=== PATIENT | female | born 1945 | race Caucasian/White ===

== ENCOUNTER 2017-06-03 20:46 | Inpatient (IN) ==
[2017-06-03 22:03] LABS: Basophils % 0.3 %; Eosinophils # 0.1 K/mcL (0.0-0.6); Eosinophils % 1.3 %; Hematocrit 35.7 % (35.3-44.9); Hemoglobin 11.3 g/dL (11.5-15.4); Immature Granulocytes % 0.3 % (0-4); Lymphocytes # 2.2 K/mcL (0.6-4.6); Lymphocytes % 36.9 %; Mean Corpuscular HGB Conc 31.7 g/dL (31.6-35.5); Mean Corpuscular Hemoglobin 27.4 pg (28.0-33.3); Mean Corpuscular Volume 86.4 fL (83.0-100.0); Mean Platelet Volume 10.9 fL (9.4-12.4); Monocytes # 0.4 K/mcL (0.0-1.3); Neutrophils # 3.2 K/mcL (1.6-8.9); Platelet Count 211 K/mcL (140-400); Red Blood Count 4.13 M/mcL (3.82-4.97); Segmented Neutrophils % 54.2 %
[2017-06-03 22:08] LABS: Prothrombin Time 10.6 Seconds (9.4-12.1)
[2017-06-03 22:11] LABS: Activated Partial Thrombo Time 39.2 Seconds (26.0-36.0)
[2017-06-03 22:24] LABS: BUN/Creatinine Ratio 23 (6-26); Blood Urea Nitrogen 17 mg/dL (8-23); Calcium 9.7 mg/dL (8.6-10.3); Carbon Dioxide 28 mEq/L (23-29); Chloride 104 mEq/L (98-107); Glucose 123 mg/dL (70-105); Osmolality,Calculated 289 (280-300); Potassium 3.7 mEq/L (3.5-5.1); Sodium 138 mEq/L (136-145); eGFR For African Americans > 60 (> 60); eGFR For Non-African Americans > 60 (> 60)
--- NOTE | 2017-06-04 00:13 | Emergency Department Note ---
Disposition Clinical Impression: Elevated blood pressure reading, Chest pressure Disposition: Admitted As Inpatient Condition: Good Time of Disposition: 00:17 Chest Pain HPI - General Chief Complaint: ED Chest Pain Stated Complaint: High BP Time Seen by Provider: 06/03/17 22:57 Source: patient Limitations: no limitations Vital Signs Reviewed: Yes Nursing Notes Reviewed: Yes - History of Present Illness HPI Narrative: 72-year-old female complains of elevated blood pressure and chest pressure. Since her blood pressure was elevated at 220/98, and she mentions that usually 145/70. This is what prompted her visit to the emergency department. Additionally she had 2 bouts of painless non bloody diarrhea, moment of feeling lightheaded . The lightheadedness feeling has resolved on its own. She does mention some chronic left scapular pain, no different night, as well as some chronic "stomach pain" that she uses omeprazole 4, and mentions it was no different tonight. Since her shoulder pain has resolved after she was able to lie down and her examiner. She denies any shortness of breath, diaphoresis, nausea, abdominal pain, bloody stools, urinary symptoms, headache, vision changes, no mass. Patient describes a history of CAD, with catheterizing in 2013 in 2014 with no stent placement. She mentions her family doctor is Lorene Barahona. She has ends to schedule follow-up appointment to be scheduled in July and Dr. Cox's office. She is compliant with her medications including amlodipine 5 mg, and carvedilol twice daily. Severity scale (1-10): 3 - Related Data Home Medications Medication Instructions Recorded Confirmed Aspirin 81 mg PO DAILY 06/04/17 06/04/17 Atorvastatin [Lipitor] 40 mg PO 0900 06/04/17 06/04/17 Carvedilol 12.5 mg PO BID 06/04/17 06/04/17 Losartan/Hydrochlorothiazide 1 each PO DAILY 06/04/17 06/04/17 [Losartan-Hctz 50-12.5 mg Tab] Omeprazole [PriLOSEC] 40 mg PO BID 06/04/17 06/04/17 Ubidecarenone/Vit E Acetate [Co 1 each PO DAILY 06/04/17 06/04/17 Q-10 100 mg Softgel] amLODIPine [Norvasc] 5 mg PO HS 06/04/17 06/04/17 Allergies Allergy/AdvReac Type Severity Reaction Status Date / Time Corticosteroids Allergy Nausea Verified 06/03/17 21:04 (Glucocorticoids) famotidine [From Pepcid] Allergy Nausea Verified 06/03/17 21:04 All systems ED: reviewed and negative except as stated. Review of Systems: As Per HPI Constitutional: Denies: fever, chills Eyes: Denies: vision change ENT ED: Denies: throat pain Cardiovascular: Denies: chest pain, palpitations, dyspnea on exertion Respiratory: Reports: as per HPI. Denies: cough, dyspnea Gastrointestinal: Reports: as per HPI. Denies: abdominal pain, nausea, vomiting Genitourinary: Denies: dysuria Musculoskeletal: Reports: as per HPI. Denies: back pain Integumentary: Denies: rash Neurological: Reports: as per HPI. Denies: headache Endocrine: Denies: fatigue Hematological/Lymphatic: Denies: easy bleeding Allergic/Immunologic: Denies: facial swelling Chest Pain PMH - Past Medical History Medical history: Reports: coronary artery disease, GERD, hypertension Surgical history: Reports: hysterectomy Psychiatric history: Reports: no psych history - Social History Smoking Status: Former smoker Alcohol use: Reports: none Drug use: Reports: none Physical Exam - General Limitations: no limitations General appearance: alert, in no apparent distress - Head Head exam: normocephalic - Eye Eye exam: Present: normal appearance, EOMI. Absent: PERRL, conjunctival injection - ENT ENT exam: normal exam, normal oropharynx, mucous membranes moist - Neck Neck exam: Present: normal inspection, full ROM - Chest Chest inspection: Present: normal inspection, symmetric chest wall rise - Respiratory Respiratory exam: Present: normal lung sounds bilaterally. Absent: respiratory distress, wheezes, stridor, accessory muscle use - Cardiovascular Cardiovascular exam: Present: regular rate, normal rhythm - Abdominal Exam Abdominal exam: Present: soft, Non-Tender - Extremities Exam Extremities exam: Present: normal inspection, full ROM, normal capillary refill - Back Exam Back exam: Present: normal inspection, full ROM. Absent: CVA tenderness (R), CVA tenderness (L) - Neurological Exam Neurological exam: Present: alert, oriented X3 - Psychiatric Psychiatric exam: Present: normal affect, normal mood - Skin Skin exam: Present: warm, dry, intact, normal color. Absent: rash, cyanosis, diaphoresis Course Course Narrative: Ptis 72-year-old female presents with complaint of chest pressure and elevated BP. She arrives by private vehicle. Her initial workup has been unremarkable here in the emergency department. She has had no recent cardiac work up. She describes some chronic epigastric abdominal pain, but tells me her chest pressure is new and a separate isssue. She has no SOB, diaphoresis, or EKG findings. However, Due to her risk factors, her concerning history, I do feel that she be benefited for admission and further monitoring for cardiac rule out. Did discuss patient with Dr. Barry, who agreed with admission. - Reevaluation(s) Reevaluation #1: Pt discussed with and accepted by hospitalist Dr. Cooper Time: 04:16 Vital Signs Temperature 98.2 F 06/03/17 21:04 Pulse Rate 73 06/03/17 21:04 Respiratory Rate 18 06/03/17 21:04 Blood Pressure 186/101 06/03/17 21:04 O2 Sat by Pulse Oximetry 99 06/03/17 21:04 Temperature 98.1 F 06/04/17 07:52 Pulse Rate 83 06/04/17 07:52 Respiratory Rate 16 06/04/17 07:52 Blood Pressure 166/96 06/04/17 07:52 O2 Sat by Pulse Oximetry 92 06/04/17 07:52 Oxygen Delivery Oxygen Delivery Room Air Chest Pain - MDM Narrative Medical decision making narrative: Chest X-Ray 06/03/17 21:09 IMPRESSION: No acute process. Thickening of the minor fissure. D/ / José Newman MD / José Newman MD Interpreting Provider: José Newman MD Laboratory Tests 06/03/17 06/03/17 06/03/17 21:43 21:43 21:43 WBC 6.0 RBC 4.13 Hgb 11.3 L Hct 35.7 MCV 86.4 MCH 27.4 L MCHC 31.7 RDW 14.0 Plt Count 211 MPV 10.9 Immature Gran % 0.3 Seg Neutrophils % 54.2 Lymphocytes % 36.9 Monocytes % 7.0 Eosinophils % 1.3 Basophils % 0.3 Neutrophils # 3.2 Lymphocytes # 2.2 Monocytes # 0.4 Eosinophils # 0.1 Basophils # 0.0 PT 10.6 INR 1.0 APTT 39.2 H Sodium 138 Potassium 3.7 Chloride 104 Carbon Dioxide 28 BUN 17 Creatinine 0.73 Est GFR ( Amer) > 60 Est GFR (Non-Af Amer) > 60 BUN/Creatinine Ratio 23 Glucose 123 H Calculated Osmolality 289 Calcium 9.7 Troponin I 06/03/17 21:43 WBC RBC Hgb Hct MCV MCH MCHC RDW Plt Count MPV Immature Gran % Seg Neutrophils % Lymphocytes % Monocytes % Eosinophils % Basophils % Neutrophils # Lymphocytes # Monocytes # Eosinophils # Basophils # PT INR APTT Sodium Potassium Chloride Carbon Dioxide BUN Creatinine Est GFR ( Amer) Est GFR (Non-Af Amer) BUN/Creatinine Ratio Glucose Calculated Osmolality Calcium Troponin I 0.04 H* - Lab Data Lab results reviewed: Yes I reviewed the patient's lab results. Result diagrams: 06/03/17 21:43 06/03/17 21:43 Lab Results 06/03/17 06/03/17 06/03/17 Range/Units 21:43 21:43 21:43 WBC 6.0 (4.3-11.1) K/mcL RBC 4.13 (3.82-4.97) M/mcL Hgb 11.3 L (11.5-15.4) g/dL Hct 35.7 (35.3-44.9) % MCV 86.4 (83.0-100.0) fL MCH 27.4 L (28.0-33.3) pg MCHC 31.7 (31.6-35.5) g/dL RDW 14.0 (11.5-14.5) % Plt Count 211 (140-400) K/mcL MPV 10.9 (9.4-12.4) fL Immature Gran % 0.3 (0-4) % Seg Neutrophils % 54.2 % Lymphocytes % 36.9 % Monocytes % 7.0 % Eosinophils % 1.3 % Basophils % 0.3 % Neutrophils # 3.2 (1.6-8.9) K/mcL Lymphocytes # 2.2 (0.6-4.6) K/mcL Monocytes # 0.4 (0.0-1.3) K/mcL Eosinophils # 0.1 (0.0-0.6) K/mcL Basophils # 0.0 (0.0-0.2) K/mcL PT 10.6 (9.4-12.1) Seconds INR 1.0 APTT 39.2 H (26.0-36.0) Seconds Sodium 138 (136-145) mEq/L Potassium 3.7 (3.5-5.1) mEq/L Chloride 104 (98-107) mEq/L Carbon Dioxide 28 (23-29) mEq/L BUN 17 (8-23) mg/dL Creatinine 0.73 (0.60-1.20) mg/dL Est GFR ( Amer) > 60 (> 60) Est GFR (Non-Af Amer) > 60 (> 60) BUN/Creatinine Ratio 23 (6-26) Glucose 123 H (70-105) mg/dL Calculated Osmolality 289 (280-300) Calcium 9.7 (8.6-10.3) mg/dL Troponin I (< 0.04) ng/mL 06/03/17 Range/Units 21:43 WBC (4.3-11.1) K/mcL RBC (3.82-4.97) M/mcL Hgb (11.5-15.4) g/dL Hct (35.3-44.9) % MCV (83.0-100.0) fL MCH (28.0-33.3) pg MCHC (31.6-35.5) g/dL RDW (11.5-14.5) % Plt Count (140-400) K/mcL MPV (9.4-12.4) fL Immature Gran % (0-4) % Seg Neutrophils % % Lymphocytes % % Monocytes % % Eosinophils % % Basophils % % Neutrophils # (1.6-8.9) K/mcL Lymphocytes # (0.6-4.6) K/mcL Monocytes # (0.0-1.3) K/mcL Eosinophils # (0.0-0.6) K/mcL Basophils # (0.0-0.2) K/mcL PT (9.4-12.1) Seconds INR APTT (26.0-36.0) Seconds Sodium (136-145) mEq/L Potassium (3.5-5.1) mEq/L Chloride (98-107) mEq/L Carbon Dioxide (23-29) mEq/L BUN (8-23) mg/dL Creatinine (0.60-1.20) mg/dL Est GFR ( Amer) (> 60) Est GFR (Non-Af Amer) (> 60) BUN/Creatinine Ratio (6-26) Glucose (70-105) mg/dL Calculated Osmolality (280-300) Calcium (8.6-10.3) mg/dL Troponin I 0.04 H* (< 0.04) ng/mL - Radiology Data Radiology results reviewed: Yes I reviewed the patient's radiology results. Attestation Statement - Attestation Attestation: I, Ke Barry MD, personally evaluated this patient and discussed their management with the midlevel provicer, PAC/STENCIL CUTTER. I reviewed the midlevel provider 's note and agree with the documented findings, medical decision making, and plan of care. 72-year-old female presents to the emergency department with a complaint of some lower substernal chest pressure which started about 8 PM this evening while watching television. The pain radiated up into the mid substernal region and she states that it made her blood pressure go up. She did not take anything for the pain and the pain has now mostly resolved. She does have a history of [place] in the past and coronary artery disease. She has had some cardiac catheters but no stents. No CABG. On examination patient is a well-developed well-nourished well-appearing elderly female in no acute distress. She is alert and oriented 3. There is no cyanosis or diaphoresis. Chest is nontender to palpation. Breath sounds are clear and equal bilaterally. Heart regular rate and rhythm. Abdomen soft and nontender with normal bowel sounds. Labs reviewed. Troponin is elevated at 0.04 however this appears to be baseline for patient. Chest x-ray negative. EKG shows no acute ischemic changes. Hospitalist, Dr. Weathers, was consulted and accepted admission of the patient.
[2017-06-04] MEDS ORDERED: GI Cocktail 40 ML EACH PO ONE (04:40)
[2017-06-04] MEDS ORDERED: Pantoprazole 40 MG VIAL IVP ONE (04:40)
[2017-06-04] MEDS ORDERED: Acetaminophen 325 MG TABLET PO PRN (08:25)
[2017-06-04 09:40] LABS: Basophils % 0.1 %; Eosinophils % 0.4 %; Hematocrit 36.5 % (35.3-44.9); Hemoglobin 11.7 g/dL (11.5-15.4); Immature Granulocytes % 0.3 % (0-4); Lymphocytes # 1.4 K/mcL (0.6-4.6); Lymphocytes % 18.9 %; Mean Corpuscular HGB Conc 32.1 g/dL (31.6-35.5); Mean Corpuscular Hemoglobin 27.3 pg (28.0-33.3); Mean Corpuscular Volume 85.3 fL (83.0-100.0); Mean Platelet Volume 10.9 fL (9.4-12.4); Monocytes # 0.5 K/mcL (0.0-1.3); Monocytes % 6.1 %; Neutrophils # 5.6 K/mcL (1.6-8.9); Platelet Count 208 K/mcL (140-400); Red Blood Count 4.28 M/mcL (3.82-4.97); Red Cell Distribution Width 14.1 % (11.5-14.5); Segmented Neutrophils % 74.2 %
--- NOTE | 2017-06-04 10:49 | Internal Med History&Physical ---
Date of Encounter: 06/04/17 Time of Encounter: 10:48 Assessment and Plan (1) NSTEMI (non-ST elevated myocardial infarction) Current visit: Yes Status: Acute Patient had typical substernal chest pain at rest. Her initial troponin was 0.04. Repeat troponin this morning as 1.13. Her EKG shows normal sinus rhythm with left bundle branch block which is unchanged from 2014. Currently her chest pain has resolved. She reports a past history of myocardial infarction and had 2 catheterizations done in 2013 in 2014, per her report it was found that she had minimal disease and no intervention was necessary. Collectively the above suggests a diagnosis of ACUTE non-ST elevation MD. Plan: Admit. Aspirin 325 mg once. Start heparin drip per ACS protocol. IV metoprolol for hypertension. Nothing by mouth. Cardiology consult. I discussed the case with cardiology, they will evaluate for left heart catheter. Hold Brilinta until seen by cardiology. We will obtain echocardiogram. IV fluids. We will obtain lipid panel in the morning. Continue statin. (2) Essential hypertension Current visit: Yes Status: Acute Resume home medications when she tolerates oral intake. For now we will treat with IV metoprolol. (3) DVT prophylaxis Current visit: Yes Status: Acute Currently fully anticoagulated with IV heparin. (4) GERD (gastroesophageal reflux disease) Current visit: Yes Status: Acute IV Protonix while the patient is nothing by mouth. Qualifiers: Esophagitis presence: esophagitis presence not specified Qualified Code(s) : K21.9 - Gastro-esophageal reflux disease without esophagitis Internal Medicine - H&P: HPI Chief complaint: Chest pain Admitted From: Emergency Dept Plans for Post Hospital Care: Home History of present illness: Ms. Valdez is a 72 year old female with past medical history significant for essential hypertension, coronary artery disease status post MD and GERD who presented to the hospital for evaluation of chest pain. She reports substernal , pressure-like, 5/10 in intensity chest pain that started yesterday at 7 PM while at rest. Associated with left shoulder pain and mid back pain and mild nonproductive cough. Denies aggravating and alleviating factors. She presented to the hospital where her initial workup was pertinent for troponin of 0.04. Her chest pain has currently resolved. Additionally reports nonbloody diarrhea 2 yesterday, this has now resolved. Reports bilateral lower extremity swelling. A 10 point review of systems was negative except as stated above. Surgical history: Remote hysterectomy Family history: Patient's father suffered with lung cancer, patient's mother suffered with Parkinson's disease, sister suffered with heart disease. Social history: Remote history of smoking, quit in 1971. Denies alcohol and drug use. Lives at home independently. Past Med Surg Social Fam HX - Past Medical History Medical history: coronary artery disease, GERD, hypertension Psychiatric history: no psych history - Past Surgical History Surgical History: hysterectomy - Social History Smoking Status: Former smoker Packs per day: 1 Smokeless Tobacco Status: No Alcohol use: none Drug use: none - Family History Mother Living Status: Hx Family Cardiac Disorders: Yes (MD) Internal Medicine - H&P: Meds Aspirin 81 mg PO DAILY 06/04/17 [History] Atorvastatin [Lipitor] 40 mg PO 0900 06/04/17 [History] Carvedilol 12.5 mg PO BID 06/04/17 [History] Losartan/Hydrochlorothiazide [Losartan-Hctz 50-12.5 mg Tab] 1 each PO DAILY [History] Omeprazole [PriLOSEC] 40 mg PO BID 06/04/17 [History] Ubidecarenone/Vit E Acetate [Co Q-10 100 mg Softgel] 1 each PO DAILY 06/04/17 [ History] amLODIPine [Norvasc] 5 mg PO HS 06/04/17 [History] 3 Allergy/AdvReac Type Severity Reaction Status Date / Time Corticosteroids Allergy Nausea Verified 06/03/17 21:04 (Glucocorticoids) famotidine [From Pepcid] Allergy Nausea Verified 06/03/17 21:04 All Systems PM: A 10-system review of systems was performed and is negative for pertinent findings except as documented above in the HPI. - Constitutional Vitals: Temp Pulse Resp BP Pulse Ox 98.1 F 83 16 166/96 92 06/04/17 07:52 06/04/17 07:52 06/04/17 07:52 06/04/17 07:52 06/04/17 07:52 General appearance: Present: A&O X 3, no acute distress, answers questions appropriately - Eye Eye exam: Present: PERRL, conjuntiva pink, sclera anicteric Pupils: Present: PERRL - Respiratory Respiratory exam: Present: CTAB. Absent: accessory muscle use, rales, rhonchi, wheezes - Cardiovascular Cardiovascular exam: Present: RRR, +S1, +S2. Absent: diastolic murmur, gallop, rubs, systolic murmur - GI/Abdominal GI/Abdominal exam: Present: normal bowel sounds, soft, no peritoneal signs. Absent: distended, tenderness - Extremities Exam Extremities exam: Present: pedal edema (Trace lower extremity pitting edema), warm, radial pulses palpable and symmetrical. Absent: calf tenderness, cyanotic - Neurological Exam Neurological exam: Present: CN II-XII intact, oriented X3, no focal deficits. Absent: pronater drift, facial droop, speech deficit - Skin Skin exam: Present: dry, intact Internal Med - H&P Results - Labs CBC & Chem 7: 06/04/17 09:30 06/03/17 21:43 Labs: Short CBC 06/04/17 Range/Units 09:30 WBC 7.6 (4.3-11.1) K/mcL Hgb 11.7 (11.5-15.4) g/dL Hct 36.5 (35.3-44.9) % Plt Count 208 (140-400) K/mcL Neutrophils # 5.6 (1.6-8.9) K/mcL Cardiac Enzymes 06/04/17 Range/Units 09:30 Troponin I 1.13 H* (< 0.04) ng/mL - EKG Data -: EKG Interpreted by Myself EKG shows normal: sinus rhythm (Left bundle branch block unchanged from 2013) - EKG Data Prior EKG available for review: yes (I have personally reviewed her old EKG from March 2014 in EMR.) When compared to previous EKG: there are significant changes
[2017-06-04] MEDS ORDERED: *HR* Metoprolol 5 MG/5 ML VIAL IVP PRN (11:50)
[2017-06-04] MEDS ORDERED: Aspirin 325 MG TABLET PO ONE (11:51)
[2017-06-04] MEDS ORDERED: *HR* Heparin 5,000 UNIT/ML VIAL IVP ONE (11:51)
[2017-06-04] MEDS ORDERED: *HR* Heparin 5,000 UNIT/ML VIAL IVP PRN ×2 (11:51)
[2017-06-04] MEDS ORDERED: Heparin 25,000 UNIT/500 ML D5W 25,000 UNIT/500 ML BAG IVC SCH (12:00)
[2017-06-04 12:13] LABS: INR 1.1
[2017-06-04 12:21] LABS: Hematocrit 37.1 % (35.3-44.9); Mean Corpuscular HGB Conc 32.3 g/dL (31.6-35.5); Mean Corpuscular Hemoglobin 27.3 pg (28.0-33.3); Mean Corpuscular Volume 84.3 fL (83.0-100.0); Platelet Count 208 K/mcL (140-400); Red Cell Distribution Width 14.1 % (11.5-14.5)
[2017-06-04] MEDS: Aspirin 81 MG TAB.CHEW PO SCH (12:36)
[2017-06-04] MEDS: 0.9 % Sodium Chloride 1,000 ML IVC SCH (12:36)
[2017-06-04] MEDS: Losartan/HCTZ 50-12.5 TABLET PO SCH (12:37)
--- NOTE | 2017-06-04 14:33 | Electrocardiograph Report ---
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
--- NOTE | 2017-06-04 15:49 | Cardiology Consult Note ---
<Jack Lockhart Anayeli - Last Filed: 06/04/17 17:56> Date of Encounter: 06/04/17 Time of Encounter: 15:44 Assessment and Plan (1) NSTEMI (non-ST elevated myocardial infarction) Current Visit: Yes Status: Acute Troponin elevation up to 1.13. EKG shows LBBB, unchanged from previous. She is currently pain free. History of moderate non-obstructive CAD on LHC in 2014. LHC R/B/A discussed and she agrees to proceed. NPO after midnight for lHC. Heparin GTT. Asa, statin, and bb. Check TTE. (2) CAD (coronary artery disease) Current Visit: Yes Status: Acute H/o VT in 2013 and 2013. Underwent LHC both times and did not require intervention. LHC in 2014 showed moderate single vessel CAD. There was a 40% stenosis in the proximal LAD and 60% stenosis in the mLAd. FFR was no functionally significant . EF 65%. Asa, statin, and bb. Qualifiers: Coronary Disease-Associated Artery/Lesion type: [place] artery [place] vs. transplanted heart: [place] heart Associated angina: with unstable angina Qualified Code(s): I25.110 - Atherosclerotic heart disease of [place] coronary artery with unstable angina pectoris (3) Essential hypertension Current Visit: Yes Status: Acute Continue norvasc and atenolol. Increase norvasc. B/p 200/110 at home. Now improved. Discussion w patient/family: The assessment and plan as outlined above was discussed with the patient and/or family members who expressed understanding and agreement. All questions were answered. Thank you for involving us in the care of your patient. Please call with any questions. History of Present Illness Consult date: 06/04/17 Requesting physician: Harshad Bashir Consult reason: NSTEMI Chief complaint: Chest pain History of present illness: Ms. Valdez is a 72 year old female with a past medical history of moderate non- obstructive CAD, LBBB, HTN, and HLD who presents with the c/o chest pain starting yesterday while she was sitting. Her pain radiated to her left shoulder and neck. She also experienced nausea. She checked her blood pressure and found it to be 200/110. She drove herself to the emergency room. SHe was given a GI cocktail with relief of her pain. Past Med Surg Social Fam HX - Past Medical History Medical history: coronary artery disease, GERD, hypertension, myocardial infarction Psychiatric history: no psych history - Past Surgical History Surgical History: hysterectomy - Social History Smoking Status: Former smoker Packs per day: 1 Smokeless Tobacco Status: No Alcohol use: none Drug use: none - Family History Mother Living Status: Hx Family Cardiac Disorders: Yes ([place]) Medications and Allergies Aspirin 81 mg PO DAILY 06/04/17 [History] Atorvastatin [Lipitor] 40 mg PO 0900 06/04/17 [History] Carvedilol 12.5 mg PO BID 06/04/17 [History] Losartan/Hydrochlorothiazide [Losartan-Hctz 50-12.5 mg Tab] 1 each PO DAILY [History] Omeprazole [PriLOSEC] 40 mg PO BID 06/04/17 [History] Ubidecarenone/Vit E Acetate [Co Q-10 100 mg Softgel] 1 each PO DAILY 06/04/17 [ History] amLODIPine [Norvasc] 5 mg PO HS 06/04/17 [History] 3 Allergy/AdvReac Type Severity Reaction Status Date / Time Corticosteroids Allergy Nausea Verified 06/03/17 21:04 (Glucocorticoids) famotidine [From Pepcid] Allergy Nausea Verified 06/03/17 21:04 All Systems Review: A 10-system review of systems was performed and is negative for pertinent findings except as documented above in the HPI. Physical Examination Vital Signs, Last 4 Hours Temp Pulse Resp BP Pulse Ox 06/04/17 15:43 98.5 F 73 16 154/88 96 General: Conversant, No Apparent Distress HEENT: Atraumatic, Normocephaly, Mucus Membranes Moist Neck: No JVD, Normal carotid pulses Cardiac: Reg Rate and Rhythm, Normal S1 and S2, No Murmur Lungs: Normal Breath Sounds, No Wheeze, Rales, Rhonchi Neuro: Alert and responsive, No focal deficits noted Abdomen: Soft, Non-Tender Skin: No rashes noted on visualized skin Musculoskeletal: No Chest Wall Tenderness Extremities: No Clubbing, No Cyanosis, No Edema, Normal Pulses Results 06/04/17 11:59 06/03/17 21:43 Chest X-Ray 06/03/17 21:09 IMPRESSION: No acute process. Thickening of the minor fissure. D/ / José Newman MD / José Newman MD Interpreting Provider: José Newman MD - Imaging and Cardiology Echo: report reviewed Cardiac cath: report reviewed - EKG Interpretation EKG results cardiology: personally reviewed (SR with LBBB) Consult Discharge Plan - Plan Referrals: Lorene Barahona MD [Primary Care Provider] - <KatelynGeri - Last Filed: 06/05/17 11:26> Date of Encounter: 06/05/17 - Attending Attestation I examined this patient and my medical decision-making was reviewed with the HOT FRAME TENDER. I agree with the documented findings, disposition and treatment plan as described. Ms. Valdez presents with atypical chest pain symptoms. ECG demonstrates known LBBB. Troponin elevated to 1.13. She has known moderate CAD by [facility] in 2014. We discussed pursuing C. The R/B/A of the procedure were discussed with the patient who expressed understanding and verbalized agreement to proceed. Continue asa, statin, BB and heparin for anticoagulation. Assessment and Plan Discussion w patient/family: The assessment and plan as outlined above was discussed with the patient and/or family members who expressed understanding and agreement. All questions were answered. Thank you for involving us in the care of your patient. Please call with any questions. History of Present Illness History of present illness: Ms. Valdez is a 72 year old female All Systems Review: A 10-system review of systems was performed and is negative for pertinent findings except as documented above in the HPI. Physical Examination Vital Signs, Last 4 Hours Temp Pulse Resp BP Pulse Ox 06/05/17 07:30 98.1 F 77 21 149/87 98 Results 06/04/17 11:59 06/05/17 03:05 Lab Results 06/04/17 06/04/17 06/05/17 19:20 22:13 03:05 APTT 167.2 H* D Sodium 139 Potassium 3.3 L Chloride 109 H Carbon Dioxide 23 BUN 13 Creatinine 0.57 L Glucose 115 H Calcium 8.9 Troponin I 0.97 H* 06/05/17 06/05/17 03:05 10:34 APTT 64.6 H D 68.5 H Sodium Potassium Chloride Carbon Dioxide BUN Creatinine Glucose Calcium Troponin I
--- NOTE | 2017-06-04 18:33 | Electrocardiograph Report ---
[place] [id number] Test Date: 2017-06-03 Pat Name: Shena Valdez Department: 104 Room: [facility] Gender: F Technical Assoc: : 1945 Requested By: Ke Barry Order Number: [id number] Reading MD: Lorene Sexton Measurements Intervals [place] Rate: 72 P: 55 [place]: 172 QRS: 17 QRSD: 140 T: 56 QT: 406 QTc: 430 Interpretive Statements SINUS RHYTHM LEFT BUNDLE BRANCH BLOCK Electronically Signed On 06-04-2017 18:31:27 EST by Lorene Sexton
[2017-06-04] MEDS: Pantoprazole 40 MG VIAL IVP SCH (19:01)
[2017-06-04 20:10] LABS: Activated Partial Thrombo Time 167.2 Seconds (26.0-36.0)
[2017-06-04 20:15] LABS: Heparin anti-factor XA UFH 0.64 IU/mL (0.30-0.70)
[2017-06-04] MEDS: amLODIPine 5 MG TABLET PO SCH (20:15)
[2017-06-04] MEDS ORDERED: amLODIPine 5 MG TABLET PO SCH (21:00)
[2017-06-05 04:06] LABS: BUN/Creatinine Ratio 23 (6-26); Blood Urea Nitrogen 13 mg/dL (8-23); Calcium 8.9 mg/dL (8.6-10.3); Carbon Dioxide 23 mEq/L (23-29); Chloride 109 mEq/L (98-107); Chol/HDL Ratio 2.5 (0-4.9); Cholesterol 159 mg/dL (< 200); Glucose 115 mg/dL (70-105); HDL Cholesterol 63 mg/dL (40-59); LDL Cholesterol,Calculated 79 mg/dL (0-99); Osmolality,Calculated 289 (280-300); Potassium 3.3 mEq/L (3.5-5.1); Sodium 139 mEq/L (136-145); Triglycerides 87 mg/dL (< 150); eGFR For African Americans > 60 (> 60); eGFR For Non-African Americans > 60 (> 60)
[2017-06-05] MEDS: Pantoprazole 40 MG VIAL IVP SCH ×2 (05:59→21:59)
[2017-06-05] MEDS: 0.9 % Sodium Chloride 1,000 ML IVC SCH (09:36)
[2017-06-05] MEDS: Losartan/HCTZ 50-12.5 TABLET PO SCH (10:56)
[2017-06-05] MEDS: Aspirin 81 MG TAB.CHEW PO SCH (10:56)
--- NOTE | 2017-06-05 11:32 | Pre-Sedation Evaluation ---
Pre-sedation evaluation - Pre-sedation checklist Date of procedure: 06/05/17 Procedure: Heart Cath Recent Vitals: Last Vital Signs Temp 98.1 F 06/05/17 11:10 Pulse 70 06/05/17 11:10 Resp 17 06/05/17 11:10 BP 136/79 06/05/17 11:10 Pulse Ox 98 06/05/17 11:10 H&P (including ROS) documented in medical record: Yes Previous reaction to sedatives/anesthetics: No Dietary Status: NPO after Midnight Dentition: No loose teeth or bridges ASA Classification *see protocol: CLASS II-Mild systemic disease Plan of Care: Pt appropriate candidate for procedure/moderate/conscious sedation , Risks/benefits of procedure/sedation discussed w/ patient/family
[2017-06-05] MEDS ORDERED: ISOVUE-370 200 ML INFUS..BTL IV ONE (11:39)
[2017-06-05] MEDS ORDERED: *HR* Heparin 10,000 UNIT/10 ML VIAL ONE (11:39)
[2017-06-05] MEDS ORDERED: Heparin 1,000 UNITS/500 mL 500 ML ONE (11:39)
[2017-06-05] MEDS ORDERED: 0.9 % Sodium Chloride 1,000 ML ONE (11:39)
[2017-06-05] MEDS ORDERED: Nitroglycerin 1,000 MCG/10 ML VIAL IV ONE (11:40)
[2017-06-05] MEDS ORDERED: *HR* Midazolam HCl 2 MG/2 ML VIAL ONE (12:07)
[2017-06-05] MEDS ORDERED: *HR* FentaNYL (PF) 100 MCG/2 ML VIAL ONE (12:07)
[2017-06-05] MEDS ORDERED: Verapamil 5 MG/2 ML VIAL ONE (12:09)
[2017-06-05] MEDS ORDERED: Ondansetron 4 MG/2 ML VIAL ONE (12:36)
[2017-06-05] MEDS ORDERED: *HR* Metoprolol 5 MG/5 ML VIAL IVP ONE (12:42)
--- NOTE | 2017-06-05 13:01 | Invasive Diagnostic Lab Proc ---
Name: Shena Valdez Date of Study: 06/05/2017 Date: 1945 Ht: 66.1in Medical Record#: [id number] Age: 72 Wt: 174.17lb Gender: Female BSA: 1.89 Order #: [id number] BMI: 27.99 Physicians Procedure Physician: Doug Mujica MD, [facility] Referring MD: Referring MD: Staff Name Position Time In Joana Wilson RN Monitor 12:13 PM Liliam Rodriguez RN [employer] Installation Supervisor 12:13 PM Sylwia Vaca RT Scrub 12:13 PM Indications Indication Non-Stemi Procedures Performed Procedure L HRT ARTERY/VENTRICLE ANGIO Pre-Procedure Checklist Informed consent is complete signed and on chart. H&P is on chart. ID band is on and ID verified with patient. Patient NPO for procedure The procedure was described for the patient and questions were answered. Blood Pressure: 136/73 ECG is on chart. Plan of Care Patient will tolerate the procedure without complications. Adequate level of comfort will be maintained. Hemodynamics will remain stable Patient will recover from procedure without complications. Respiratory function will be maintained. Cardiac rhythm will remain stable. Patient temperature will be maintained. Patient and/or family have verbalized understanding of the procedure. Patient Education Chief Complaint/Reason for Test: Cardiac Cath Developmental Category: Adult (18-64 years) Developmentally Appropriate for Age: Yes Learning Barriers: None Education Needs: Procedure Education Method: Verbal Information Taught: Cardiac Cath Educational Evaluation: Able to repeat information Intravenous Access Time IV Size Location DC'd Fluid/Drip Rate Units RN 20g 1 1/4" Patent On Arrival Lt Antecubital 0.9NaCl 25 ml/hr 20g 1 1/4" Patent On Arrival Rt Antecubital Allergies Corticosteroids (Glucocorticoids) famotidine Vital Signs Time BP (mmHg) HR (bpm) O2 Sat. RR (bpm) LOC 136 / 73 75 95 % 16 5 = Fully awake and oriented or at pre-proc level 12:06 PM 159 / 93 85 96 % 12:11 PM 161 / 89 80 98 % 19 12:16 PM 162 / 86 83 99 % 25 12:21 PM 166 / 92 86 99 % 20 12:26 PM 125 / 93 125 92 % 29 Procedural Medications Time Medication Dose Units Method Given By 12:13 PM Oxygen 2 L/min nasal cannula Liliam Rodriguez RN 12:13 PM Versed 2 mg Intravenous Liliam Rodriguez RN 12:13 PM Fentanyl 50 mcg Intravenous Liliam Rodriguez RN 12:21 PM Fentanyl 50 mcg Intravenous Liliam Rodriguez RN 12:21 PM Lidocaine 2% 0.5 ml Subcutaneous Doug Mujica MD, [facility] 12:22 PM Heparin 2000 units Nitroglycerin 200 mcg Verapamil 2.5 mg Intraarterial Doug Mujica MD, FAC 12:37 PM Zofran 4 mg Intravenous Liliam Rodriguez RN 12:43 PM Lopressor 2.5 mg Intravenous Liliam Rodriguez RN Ari Score Preprocedure Postprocedure Activity 2- Moves 4 extremities sustained head lift Activity 2- Moves 4 extremities sustained head lift Circulation 2- SBP +/= 20 points of pre-anesthetic level Circulation 2- SBP +/= 20 points of pre-anesthetic level Consciousness 2- Awake and alert oriented x 3 Consciousness 2- Awake and alert oriented x 3 O2 Saturation 2- Able to maintain O2 satruation of 92% on room air O2 Saturation 2- Able to maintain O2 satruation of 92% on room air Respiratory 2- Able to deep breathe and cough well Respiratory 2- Able to deep breathe and cough well Total Score 10 Total Score 10 Contrast Agent: Isovue Diagnostic Contrast: 42 ml Total Contrast: 42 ml Fluoro Dose: 112 mGy Procedure Log Time Note Enter By 12:02 PM Pt arrived to [facility] 2 at 12:02 [facility] 12:02 PM Keenan paged/called 12:02. [email or web address] 12:02 PM Keenan responded and notified [facility] is [facility] 12:02 PM Physician arrived 12:02 [facility] 12:02 PM Meet and greet completed [facility] 12:02 PM Sign in performed according to hospital policy. [email or web address] 12:02 PM Procedure start 12:02 [email or web address] 12:02 PM CathStat 12:02 PM Case Start 12:05 PM Vitals capture started with the following parameters, Patient=Adult, Interval=5 min, Initial Eeuobctg=768 mmHg, Deflation Rate=5 mmHg, Cuff placed on Right Arm 12:06 PM HR=85 bpm, USHN=093/93 mmhg, SpO2=96.0 %, Comment=SR 12:11 PM HR=80 bpm, RFXK=363/89 mmhg, SpO2=98.0 %, Resp=19 B/min 12:12 PM Recorded ECG: HR=88 Condition=Condition 1 12:13 PM Joana Wilson RN Position: Monitor Time in: :[facility] 12: PM Liliam Rodriguez RN Position: [employer] Installation Supervisor Time in: :[facility] 12:13 PM Sylwia Vaca RT Position: Scrub Time in: : [facility] 12:13 PM Patient charges- Angio tray pack, Navilyst 3mm J, Pulse Oximetry and ACIST tubing and transducer [facility] 12:13 PM Case Delayed No [facility] 12: PM Hair removed from procedure site in procedure lab using clippers. Right wrist &Rt groin prepped with Chloraprep by Liliam Rodriguez RN, then patient was draped. Skin intact. [facility] 12: PM Time: 12: Oxygen on at 2 L/min per nasal cannula by [facility] 12: PM Time: 12: Versed 2 mg Intravenous Given by Liliam Rodriguez [facility] 12: PM Time: 12: Fentanyl 50 mcg Intravenous Given by Liliam Rodriguez RN [facility] 12:16 PM HR=83 bpm, ELFK=595/86 mmhg, SpO2=99.0 %, Resp=25 B/min 12:20 PM Clinical Presentation: Non-STEMI [facility] 12:20 PM Time out performed according to hospital policy [facility] 12:20 PM IV tubing came apart, unsure if pt received medications. Pt still awake, alert, and oriented. Reports does not feel medication "working." [facility] 12: PM HR=86 bpm, POEN=336/92 mmhg, SpO2=99.0 %, Resp=20 B/min 12: PM Time: 12: Fentanyl 50 mcg Intravenous Given by Liliam Rodriguez RN [facility] 12: PM Time: 12: 0.5 ml Lidocaine 2% to right radial Subcutaneous Given by Doug Mujica MD, [facility] 12:21 PM Access obtained by percutaneous puncture. 6Fr 10cm Terumo Glidesheath sheath placed in right Radial artery. [id number] [facility] 12: PM Time: : Patient given 2,000 units Heparin, 200 mcg Nitroglycerin, and 2.5 mg Verapamil Intraarterial by Doug Mujica MD, [facility]. This is given to reduce risk of vessel spasm and thrombosis. [facility] 12: PM Pressure channel 1 zeroed. 12:22 PM 0.035 260cm Navilyst 3mmJ wire [id number] [facility] 12: PM 5Fr TIG catheter inserted over the wire [facility] 12: PM Wire removed [facility] 12:23 PM Recorded Pressure: Ao, HR=89, Condition=Condition 1 (Aorta) Ao 131/80/104 12:23 PM RCA angiography performed in multiple views. [facility] 12:24 PM Recorded Pressure: Ao, OG=708, Condition=Condition 1 (Aorta) Ao 111/88/98 12:24 PM LCA angiography performed in multiple views. oumm 12:25 PM Catheter removed [facility] 12:25 PM 5Fr Pigtail catheter inserted over the wire [facility] 12: PM Catheter selectively placed in left [facility] 12:26 PM JS=648 bpm, JAFO=153/93 mmhg, SpO2=92.0 %, Resp=29 B/min 12:26 PM Bolus angiogram of left Ventricle complete: 10 ml/sec for a total of 20 mls [facility] 12:26 PM Recorded Pressure: LV, WH=467, Condition=Condition 1 (Left Ventricle) LV 138/4/47 12:27 PM Recorded Pressure: LV, Ao, VR=748, Condition=Condition 1 (Left Ventricle) LV 131/21/51, (Aorta) Ao 139/79/106 12:27 PM Catheter removed [facility] 12:27 PM Procedure completed at 12:27 [facility] 12:29 PM Sign out completed: Radiation Dose 111.62 mGy Fluoro Time: 0.7 Isovue 370 - 200ml contrast 42 ml given by Doug Mujica MD, [facility]. Complications: NoneCardiac Rehab Consult needed: NoConfirmed administered medications: Yes [facility] 12:29 PM Isovue 370 - 200ml,1 Bottle(s) used. [facility] 12:29 PM Arterial sheath pulled, Vasc Band closure device used and was Successful S/N. [facility] 12:29 PM 12 ml air in Vasc Band. [facility] 12:29 PM Estimated Blood Loss: minimal [facility] 12:30 PM Post Blood Pressure 125/93 [facility] 12:30 PM 12:30 Post Pulses Rt Radial 1+ [facility] 12:30 PM Information taught Cardiac Cath [facility] 12:30 PM Education needs Procedure, Plan of Care, and Responsibilities of Patient in Care [facility] 12:30 PM Learning barriers :None [facility] 12:30 PM Education Methods Verbal [facility] 12:30 PM Education evaluation Able to repeat information [facility] 12:30 PM Site status No bleeding/hematoma - Rt Wrist as reported by Sylwia Vaca RT at 12:30 [facility] 12:30 PM Post ECG Atrial Fibrillation [facility] 12:31 PM Plavix, Effient or Brilinta given No [facility] 12:31 PM Delay to floor No [facility] 12:31 PM Family placed in consult room. mm 12:31 PM Complications: None [facility] 12:31 PM Fluoro Time: 0.7 [facility] 12:31 PM Isovue 370 - 200ml contrast 42 ml given by Doug Mujica MD, [facility]. [facility] 12:31 PM Radiation Dose 111.62 mGy [facility] 12:33 PM Coronary Dominance: right [facility] 12:33 PM Lesion found in Mid RCA. Pre Stenosis: 50 Pre CASSIDY Flow: [facility] 12:33 PM Lesion found in Mid LAD. Pre Stenosis: 40 Pre CASSIDY Flow: [facility] 12:33 PM Lesion found in Distal LAD. Pre Stenosis: 70 Pre CASSIDY Flow: [facility] 12:35 PM Right Coronary, Right Posterior Descending Arteries with Right Posterolateral and Acute Marginal branches with 50 % stenosis. If graft is supplying this area, 0 % stenosis [facility] 12:35 PM Mid/Distal Left Anterior Descending Coronary Artery and diagonal branches with 70% stenosis. If graft is supplying this area, 0 % stenosis [facility] 12:36 PM Report given to Alice BOYCE Pt taken to Other Room #[facility]. 12:36 [facility] 12:36 PM Pt reports nausea. [facility] 12:37 PM Time: 12:37 Zofran 4 mg Intravenous Given by Liliam Rodriguez RN [facility] 12:44 PM Time: 12:43 Lopressor 2.5 mg Intravenous Given by Liliam Rodriguez RN 12:50 PM Patient out of room: 12:50 moustapha Complications Complication None Hemodynamics Pressures Site Systolic/A Wave Diastolic/V Wave Mean AO 131 80 104 AO 111 88 98 LV 138 4 47 LV 131 21 51 AO 139 79 106 Post Procedure Information Blood Pressure: 125/93 mmHg Rhythm: Atrial Fibrillation Post procedural instructions were given Closure Device Time Device Success/Fail 06/05/2017 12:29:00 PM Mechanical Compression Successful Site Checks Time Location Status Staff Sheath In? Note 12:30 PM Rt Wrist No bleeding/hematoma Sylwia Vaca RT Pulses Time Site Pre-Procedure Post-Procedure Note Bilateral DP & PT 1+ Bilateral radial 1+ 12:30:00 PM Rt Radial 1+ Updated by Joana Wilson RN on 06/05/2017 12:52:49 PM electronically signed on 06/05/2017 12:53:13 PM with status of Final
[2017-06-05] MEDS ORDERED: *HR* Heparin 5,000 UNIT/ML VIAL IVP ONE (16:23)
[2017-06-05] MEDS ORDERED: *HR* Heparin 5,000 UNIT/ML VIAL IVP PRN ×2 (16:23)
--- NOTE | 2017-06-05 16:24 | Internal Med Progress Note ---
Date of Encounter: 06/05/17 Time of Encounter: 13:00 - Assessment and plan (1) CAD (coronary artery disease) Current Visit: Yes Status: Acute Assessment and plan: per hx. Presented with chest pressure. Serial troponins negative, EKG without acute ST changes. Heparin drip was started on arrival given her cardiac history and presentation. TTE with EF 35%, left ventricular systolic dysfunction. 06/05/17 [facility] with non-obstructive CAD reportedly with myocarditis ( ? recent flu). Suspect possible GI source for chest discomfort as well. Workup as noted below. Continue home ASA, BB, statin. Qualifiers: Coronary Disease-Associated Artery/Lesion type: [place] artery [place] vs. transplanted heart: [place] heart Associated angina: with unstable angina Qualified Code(s): I25.110 - Atherosclerotic heart disease of [place] coronary artery with unstable angina pectoris (2) Atrial fibrillation with RVR Current Visit: Yes Status: Acute Assessment and plan: new onset after L HC. Heart rates in one teens to 120s. Amiodarone and heparin drip. Cardiology following. Optimize electrolytes (3) GERD (gastroesophageal reflux disease) Current Visit: Yes Status: Acute Assessment and plan: per hx. patient reports right upper quadrant pain with associated reflux/chest pressure. Continue PPI. Right upper quadrant US, lipase pending Qualifiers: Esophagitis presence: esophagitis presence not specified Qualified Code(s) : K21.9 - Gastro-esophageal reflux disease without esophagitis (4) DVT prophylaxis Current Visit: Yes Status: Acute Assessment and plan: hep gtt - Subjective Interval history: Seen and examined at bedside; patient is new to me. Information obtained from chart review and patient report. Patient says she feels better with like to go home today however she is in A. fib with RVR. Patient describes right upper quadrant pain for several months that radiates to her chest. No previous workup for abdominal pain. Denies chest pain, no shortness of breath on my exam. - Constitutional Vitals: Temp Pulse Resp BP Pulse Ox 97.7 F 101 21 103/89 94 06/05/17 15:15 06/05/17 16:00 06/05/17 16:00 06/05/17 16:00 06/05/17 16:00 General appearance: Present: A&O X 3, no acute distress, answers questions appropriately - Head Head exam: Present: atraumatic, normocephalic - Eye Eye exam: Present: PERRL, conjuntiva pink, sclera anicteric Pupils: Present: PERRL - Neck Neck exam general surgery: Present: supple, trachea midline. Absent: lymphadenopathy - Respiratory Respiratory exam: Present: CTAB. Absent: accessory muscle use, rales, rhonchi, wheezes - Cardiovascular Cardiovascular exam: Present: irregular rhythm, +S1, +S2. Absent: diastolic murmur, gallop, rubs, systolic murmur - GI/Abdominal GI/Abdominal exam: Present: normal bowel sounds, soft, no peritoneal signs. Absent: distended, tenderness - Extremities Exam Extremities exam: Present: warm, radial pulses palpable and symmetrical. Absent : calf tenderness, cyanotic, pedal edema - Neurological Exam Neurological exam: Present: CN II-XII intact, oriented X3, no focal deficits. Absent: pronater drift, facial droop, speech deficit - Skin Skin exam: Present: dry, intact Internal Medicine: Result - Labs CBC & Chem 7: 06/04/17 11:59 06/05/17 03:05 Labs: BMP 06/05/17 03:05 Sodium 139 Potassium 3.3 L Chloride 109 H Carbon Dioxide 23 BUN 13 Creatinine 0.57 L Glucose 115 H Calcium 8.9 Cardiac Enzymes 06/04/17 Range/Units 22:13 Troponin I 0.97 H* (< 0.04) ng/mL - ABG Interpretation ABG results: PT/INR, D-dimer PT 12.0 Seconds (9.4-12.1) 06/04/17 11:55 Consult Discharge Plan - Plan Referrals: Lorene Barahona MD [Primary Care Provider] -
[2017-06-05] MEDS ORDERED: Amiodarone Premix 360 MG/200 ML BAG IVC ONE (16:25)
--- NOTE | 2017-06-05 16:35 | Event Note ---
Date of Encounter: 06/05/17 Time of Encounter: 16:33 - Cardiology Event Note Ms. Valdez is s/p LHC. No intervention. There is concern for possible myocarditis with reduced EF. She developed atrial fibrillation today with HR up to 130's. Denies previous history. She was given IV lopressor and started on cardizem gtt. HR now 115-130. TTE resulted and showed newly reduced EF at 35%. Normal LV chamber size and wall thickkness. Segmental left ventricular systolic dysfunction. Mild left ventricular diastolic dysfunction. Normal right ventricular structure and function. Mild mitral regurgitation. Mild tricuspid regurgitation. Moderate pulmonary hypertension. Estimated RVSP is 50 mmHg. Recommend stopping cardizem due to cardiomyopathy. B/p reduced now in the 90's systolic. Add amiodarone gtt. Continue carvedilol as tolerated. She is a CHADS VASc= 4. AC with coumadin vs NOAC discussed. SHe is agreeable to AC. Heprin gtt started. I will sent elvira to her pharmacy for green check.
[2017-06-05 16:55] LABS: Hematocrit 32.3 % (35.3-44.9); Hemoglobin 10.9 g/dL (11.5-15.4); Mean Corpuscular HGB Conc 33.7 g/dL (31.6-35.5); Mean Corpuscular Hemoglobin 28.3 pg (28.0-33.3); Mean Corpuscular Volume 83.9 fL (83.0-100.0); Mean Platelet Volume 11.1 fL (9.4-12.4); Platelet Count 181 K/mcL (140-400); Red Blood Count 3.85 M/mcL (3.82-4.97); Red Cell Distribution Width 14.4 % (11.5-14.5)
[2017-06-05 17:03] LABS: INR 1.1; Prothrombin Time 12.1 Seconds (9.4-12.1)
[2017-06-05 17:11] LABS: Activated Partial Thrombo Time 33.9 Seconds (26.0-36.0)
[2017-06-05] MEDS: Heparin 25,000 UNIT/500 ML D5W 25,000 UNIT/500 ML BAG IVC SCH (19:12)
[2017-06-05] MEDS: amLODIPine 5 MG TABLET PO SCH (21:59)
[2017-06-05] MEDS: Amiodarone Premix 360 MG/200 ML BAG IVC SCH (23:34)
[2017-06-06 01:46] LABS: BUN/Creatinine Ratio 19 (6-26); Blood Urea Nitrogen 11 mg/dL (8-23); Calcium 8.5 mg/dL (8.6-10.3); Carbon Dioxide 23 mEq/L (23-29); Chloride 110 mEq/L (98-107); Glucose 121 mg/dL (70-105); Lipase 40 Units/L (11-82); Osmolality,Calculated 291 (280-300); Potassium 3.7 mEq/L (3.5-5.1); Sodium 140 mEq/L (136-145); eGFR For African Americans > 60 (> 60); eGFR For Non-African Americans > 60 (> 60)
[2017-06-06 02:14] LABS: Activated Partial Thrombo Time > 360.0 Seconds (26.0-36.0)
[2017-06-06 02:54] LABS: Heparin anti-factor XA UFH 1.01 IU/mL (0.30-0.70)
[2017-06-06] MEDS: Pantoprazole 40 MG VIAL IVP SCH ×2 (06:07→17:46)
[2017-06-06] MEDS: Aspirin 81 MG TAB.CHEW PO SCH (08:02)
[2017-06-06] MEDS: Losartan/HCTZ 50-12.5 TABLET PO SCH (08:02)
--- NOTE | 2017-06-06 14:58 | Event Note ---
Date of Encounter: 06/06/17 Time of Encounter: 14:35 - Cardiology Event Note Eliquis green check of $142/month, Xarelto 20mg PO daily = $47/month. Patient agreeable to proceed with Xarelto. Currently being evaluated by general surgery. Recommend start anticoagulation once deemed appropriate by general surgery. Currently sinus rhythm. Discussed and reviewed with Dr. Lacy, will continue IV amiodarone and start PO amiodarone 200 mg by mouth daily tomorrow. Continue heparin drip for now.
--- NOTE | 2017-06-06 15:07 | General Surgery Consult Note ---
<Lorene Narvaez Sandi - Last Filed: 06/06/17 15:04> Date of Encounter: 06/06/17 Time of Encounter: 14:30 Assessment and Plan (1) Epigastric fullness Current Visit: Yes Status: Acute Continue PPI therapy BID Recommend EGD with possibility of dilation with Dr. Schofield in the next 24 hours Will need to hold heparin gtt 3 hours prior to scope Hold on start of Xarelto until after EGD complete Supportive care NPO after midnight (2) GERD (gastroesophageal reflux disease) Current Visit: Yes Status: Acute PPI therapy BID Will need to hold heparin gtt 3 hours prior to scope Hold on start of Xarelto until after EGD complete Qualifiers: Esophagitis presence: esophagitis presence not specified Qualified Code(s) : K21.9 - Gastro-esophageal reflux disease without esophagitis (3) Cardiomyopathy Current Visit: Yes Status: Chronic Cardiology following for recommendations Qualifiers: Cardiomyopathy type: non-obstructive hypertrophic Qualified Code(s): I42.2 - Other hypertrophic cardiomyopathy (4) Atrial fibrillation Current Visit: Yes Status: Acute Currently in NSR Cardiology following May start Xarelto after EGD complete Hold heparin 3 hours prior to EGD procedure Qualifiers: Atrial fibrillation type: paroxysmal Qualified Code(s): I48.0 - Paroxysmal atrial fibrillation (5) NSTEMI (non-ST elevated myocardial infarction) Current Visit: Yes Status: Acute s/p [facility] 06/05/17- no intervention Cardiology following for recommendations History of Present Illness Consult date: 06/06/17 Reason for consult: other (epigastric fullness) Requesting physician: Pamella Babcock History of present illness: Ms. Valdez is a very pleasant 72 year old female who was admitted to the hospital and as been treated for a NSTEMI. She is s/p a [facility] 06/05/17. She does have a cardiomyopathy with an EF of 35-40%. She has also experienced atrial fibrillation during her admission. Surgery has been asked to see and evaluate te patient for her epigatric fullness. She reports epigastric fullness before and after meals. She states that typically worse at the end of the day. She is unable to do attribute this to any types of foods or drinks. She does report acid reflux and she states that she takes omeprazole 40 mg twice a day as well as Maalox as needed for continued reflux. She denies any abdominal pain. She denies any nausea or vomiting. Denies any melena or hematochezia. She denies any loss of appetite. She admits to having occasional constipation but states that she treats this with stool softeners and its well-managed. She does report that she had an EGD complete with Dr. Lu 2 years ago. The records have been reviewed and she did have an EGD with dilatation on 07/03/2015, she also had gastritis at that time. She states that at that time she did have similar symptoms and they were improved after dilation. She also had a colonoscopy completed in June [address] Lu. She has had an ultrasound of the right upper quadrant during this admission which shows evidence of cholelithiasis without inflammatory changes or ductal dilation. We have been asked to see and evaluate the patient for recommendations. Past Med Surg Social Fam HX - Past Medical History Source: patient, old records reviewed Medical history: cancer (basal cell carcinoma), cardiomyopathy, coronary artery disease, GERD (gastritis), hypertension, myocardial infarction, other (Rosacea) Psychiatric history: no psych history - Past Surgical History Surgical History: hysterectomy, other (EGD- 05/21/2013, EGD with dilation- , Colonoscopy- 07/02/17) - Social History Smoking Status: Former smoker Packs per day: 1 Smokeless Tobacco Status: No Alcohol use: none Drug use: none Current living situation: Home - Independent Activity Level: Independent ambulation - Family History Mother Living Status: Hx Family Cardiac Disorders: Yes (IA) Hx Family Neuromuscular Disorders: Yes (Parkinson's disease) Father Living Status: Hx Family Cancer: Yes (Lung) Sister Living Status: Age at : 32 Hx Family Cardiac Disorders: Yes (Heart disease) Medications and Allergies Aspirin 81 mg PO DAILY 06/04/17 [History] Atorvastatin [Lipitor] 40 mg PO 0900 06/04/17 [History] Carvedilol 12.5 mg PO BID 06/04/17 [History] Losartan/Hydrochlorothiazide [Losartan-Hctz 50-12.5 mg Tab] 1 each PO DAILY [History] Omeprazole [PriLOSEC] 40 mg PO BID 06/04/17 [History] Ubidecarenone/Vit E Acetate [Co Q-10 100 mg Softgel] 1 each PO DAILY 06/04/17 [ History] amLODIPine [Norvasc] 5 mg PO HS 06/04/17 [History] 3 Allergy/AdvReac Type Severity Reaction Status Date / Time Corticosteroids Allergy Nausea Verified 06/03/17 21:04 (Glucocorticoids) famotidine [From Pepcid] Allergy Nausea Verified 06/03/17 21:04 Review of Systems All systems PM: reviewed and no additional remarkable complaints except as stated (in the HPI) All systems PM: A 10-system review of systems was performed and is negative for pertinent findings except as documented above in the HPI. General Surgery Exam Initial Vital Signs Temp Pulse Resp BP Pulse Ox 98.2 F 73 18 186/101 99 06/03/17 21:04 06/03/17 21:04 06/03/17 21:04 06/03/17 21:04 06/03/17 21:04 - General physical appearance well developed, well nourished, no distress, no pain - Eyes normal ocular movement - ENT normal mucosa, atraumatic, normocephalic - Neck trachea midline - Respiratory normal respiratory effort, clear to auscultation - Cardiovascular Cardiovascular exam: Present: RRR - Abdomen Abdomen general surgery: Present: bowel sounds present, soft, non tender - Integumentary Integumentary general surgery: Present: warm and dry - Neurologic Present: CN 2-12 grossly intact - Musculoskeletal Present: normal gait, normal posture - Psychiatric Psychiatric general surgery: Present: appropriate, oriented to person, oriented to place, oriented to time, speech is normal, memory intact Exam Initial Vital Signs Temp Pulse Resp BP Pulse Ox 98.2 F 73 18 186/101 99 06/03/17 21:04 06/03/17 21:04 06/03/17 21:04 06/03/17 21:04 06/03/17 21:04 Results - Labs 06/05/17 16:43 06/06/17 01:08 Abnormal lab results Hgb 10.9 g/dL (11.5-15.4) L 06/05/17 16:43 Hct 32.3 % (35.3-44.9) L 06/05/17 16:43 APTT 98.2 Seconds (26.0-36.0) H D 06/06/17 10:08 Heparin Anti-Xa, Unfract 1.01 IU/mL (0.30-0.70) H* 06/06/17 01:08 Chloride 110 mEq/L (98-107) H 06/06/17 01:08 Creatinine 0.58 mg/dL (0.60-1.20) L 06/06/17 01:08 Glucose 121 mg/dL (70-105) H 06/06/17 01:08 Calcium 8.5 mg/dL (8.6-10.3) L 06/06/17 01:08 Troponin I 0.97 ng/mL (< 0.04) H* 06/04/17 22:13 B-Natriuretic Peptide 429 pg/mL (Less than 100) H 06/04/17 11:59 HDL Cholesterol 63 mg/dL (40-59) H 06/05/17 03:05 Diabetes panel 06/06/17 Range/Units 01:08 Sodium 140 (136-145) mEq/L Potassium 3.7 (3.5-5.1) mEq/L Chloride 110 H (98-107) mEq/L Carbon Dioxide 23 (23-29) mEq/L BUN 11 (8-23) mg/dL Creatinine 0.58 L (0.60-1.20) mg/dL Glucose 121 H (70-105) mg/dL Calcium 8.5 L (8.6-10.3) mg/dL Calcium panel 06/06/17 Range/Units 01:08 Calcium 8.5 L (8.6-10.3) mg/dL Pituitary panel 06/06/17 Range/Units 01:08 Sodium 140 (136-145) mEq/L Potassium 3.7 (3.5-5.1) mEq/L Chloride 110 H (98-107) mEq/L Carbon Dioxide 23 (23-29) mEq/L BUN 11 (8-23) mg/dL Creatinine 0.58 L (0.60-1.20) mg/dL Glucose 121 H (70-105) mg/dL Calcium 8.5 L (8.6-10.3) mg/dL Adrenal panel 06/06/17 Range/Units 01:08 Sodium 140 (136-145) mEq/L Potassium 3.7 (3.5-5.1) mEq/L Chloride 110 H (98-107) mEq/L Carbon Dioxide 23 (23-29) mEq/L BUN 11 (8-23) mg/dL Creatinine 0.58 L (0.60-1.20) mg/dL Glucose 121 H (70-105) mg/dL Calcium 8.5 L (8.6-10.3) mg/dL All other labs normal. - Imaging Additional studies: Chest X-Ray 06/03/17 21:09 IMPRESSION: No acute process. Thickening of the minor fissure. D/ / José Newman MD / José Newman MD Interpreting Provider: José Newman MD Echocardiogram 06/04/17 12:28 Impressions: LVEF 35%. Normal LV chamber size and wall thickkness. Segmental left ventricular systolic dysfunction. Mild left ventricular diastolic dysfunction. Normal right ventricular structure and function. Mild mitral regurgitation. Mild tricuspid regurgitation. Moderate pulmonary hypertension. Estimated RVSP is 50 mmHg. Left Ventricular Wall Motion: Rest Echo Findings The apex, apical inferior, apical anterior, mid anterior, apical septal, apical lateral and mid anterior septal guaman were hypokinetic. All other wall segments showed normal motion. Findings: Study Quality * Technically adequate exam. ECG Findings * Normal sinus rhythm. Left Ventricle * LVEF 35%. * Normal LV chamber size and wall thickkness. * Segmental left ventricular systolic dysfunction. * Mild left ventricular diastolic dysfunction. Right Ventricle * Normal right ventricular structure and function. Left Atrium * Mildly dilated left atrium. Right Atrium * Normal right atrial size. Interatrial Septum * Interatrial septum not well evaluated. Aortic Valve * Aortic valve not well visualized. * No aortic regurgitation. * No aortic stenosis. Mitral Valve * Normal mitral valve structure. * Mild mitral regurgitation. * No mitral stenosis. Tricuspid Valve * Normal tricuspid valve structure. * Mild tricuspid regurgitation. * Moderate pulmonary hypertension. * Estimated RVSP is 50 mmHg. * Estimated RA pressure is 5 mmHg. Pulmonic Valve * Normal pulmonic valve structure and function. * No pulmonic regurgitation. Aorta * Normally sized aortic root. Pericardium * The pericardium appears normal. IVC * Normal IVC dimensions and inspiratory collapse. Pulmonary Artery * Normal visualized portions of the main pulmonary artery. Abdomen Ultrasound 06/05/17 16:22 IMPRESSION: Cholelithiasis without evidence for acute cholecystitis. D/ / Darin Lucero MD / Darin Lucero MD Interpreting Provider: Darin Lucero MD Consult Discharge Plan - Plan Referrals: Jack Lockhart CNP [Advanced Practice Nurse] - (CARDIOLOGY OFFICE WILL CALL PATIENT AT HOME WITH FOLLOW UP APPOINTMENT) Lorene Barahona MD [Primary Care Provider] - 06/14/17 3:00 pm - Attending Attestation For this encounter, I have reviewed the HAIRSPRING STAKER or PA documentation, treatment plan, and medical decision making; and I have had face to face time with this patient. <Omid Schofield - Last Filed: 06/07/17 10:21> Date of Encounter: 06/06/17 Review of Systems All systems PM: A 10-system review of systems was performed and is negative for pertinent findings except as documented above in the HPI. General Surgery Exam Initial Vital Signs Temp Pulse Resp BP Pulse Ox 98.2 F 73 18 186/101 99 06/03/17 21:04 06/03/17 21:04 06/03/17 21:04 06/03/17 21:04 06/03/17 21:04 Exam Initial Vital Signs Temp Pulse Resp BP Pulse Ox 98.2 F 73 18 186/101 99 06/03/17 21:04 06/03/17 21:04 06/03/17 21:04 06/03/17 21:04 06/03/17 21:04 Results - Labs 06/07/17 03:41 06/07/17 03:41 Abnormal lab results RBC 3.73 M/mcL (3.82-4.97) L 06/07/17 03:41 Hgb 10.2 g/dL (11.5-15.4) L 06/07/17 03:41 Hct 32.1 % (35.3-44.9) L 06/07/17 03:41 MCH 27.3 pg (28.0-33.3) L 06/07/17 03:41 RDW 14.6 % (11.5-14.5) H 06/07/17 03:41 APTT 63.5 Seconds (26.0-36.0) H 06/07/17 00:01 Heparin Anti-Xa, Unfract 1.01 IU/mL (0.30-0.70) H* 06/06/17 01:08 Potassium 3.3 mEq/L (3.5-5.1) L 06/07/17 03:41 Chloride 108 mEq/L (98-107) H 06/07/17 03:41 Troponin I 0.97 ng/mL (< 0.04) H* 06/04/17 22:13 B-Natriuretic Peptide 429 pg/mL (Less than 100) H 06/04/17 11:59 HDL Cholesterol 63 mg/dL (40-59) H 06/05/17 03:05 Diabetes panel 06/07/17 Range/Units 03:41 Sodium 141 (136-145) mEq/L Potassium 3.3 L (3.5-5.1) mEq/L Chloride 108 H (98-107) mEq/L Carbon Dioxide 27 (23-29) mEq/L BUN 11 (8-23) mg/dL Creatinine 0.63 (0.60-1.20) mg/dL Glucose 100 (70-105) mg/dL Calcium 8.8 (8.6-10.3) mg/dL Calcium panel 06/07/17 Range/Units 03:41 Calcium 8.8 (8.6-10.3) mg/dL Pituitary panel 06/07/17 Range/Units 03:41 Sodium 141 (136-145) mEq/L Potassium 3.3 L (3.5-5.1) mEq/L Chloride 108 H (98-107) mEq/L Carbon Dioxide 27 (23-29) mEq/L BUN 11 (8-23) mg/dL Creatinine 0.63 (0.60-1.20) mg/dL Glucose 100 (70-105) mg/dL Calcium 8.8 (8.6-10.3) mg/dL Adrenal panel 06/07/17 Range/Units 03:41 Sodium 141 (136-145) mEq/L Potassium 3.3 L (3.5-5.1) mEq/L Chloride 108 H (98-107) mEq/L Carbon Dioxide 27 (23-29) mEq/L BUN 11 (8-23) mg/dL Creatinine 0.63 (0.60-1.20) mg/dL Glucose 100 (70-105) mg/dL Calcium 8.8 (8.6-10.3) mg/dL All other labs normal. - Attending Attestation I reviewed the above assessment and evaluation and agree with the above plan. Noted feeling of fullness in the epigastrum region. No abdominal pain and no pain on examination. No nausea or vomiting. Patient has had a prior EGD (for the same symptoms) that demonstrated evidence of a gastric ulcer. Agree that it would be appropriate to plan for an EGD tomorrow. Will hold heparin IV 3 hours prior to the procedure.
--- NOTE | 2017-06-06 15:47 | Cardiology Progress Note ---
Date of Encounter: 06/06/17 Time of Encounter: 15:38 Assessment and Plan (1) Myocarditis Current Visit: Yes Status: Acute Recent viral syndrome. Troponin elevation. Nonobstructive CAD noted on cardiac catheterization. Presentation suggestive of myocarditis. No current chest pain reported. Continue supportive therapy. Qualifiers: Infective myocarditis organism: viral Chronicity: acute Qualified Code(s) : I40.0 - Infective myocarditis (2) Atrial fibrillation with RVR Current Visit: Yes Status: Acute Atrial fibrillation with RVR yesterday, now sinus rhythm. Continue amiodarone IV for now, changed to 200 mg by mouth once infusion complete. Currently on heparin drip. Surgical evaluation in progress regarding abdominal pain. Will hold off transition to oral anticoagulation for now. Transition to oral anticoagulation prior to discharge. (3) Cardiomyopathy Current Visit: Yes Status: Chronic Nonischemic cardiomyopathy. Volume status improved - no orthopnea, lower extremity edema. Agree with aspirin, statin, Coreg, and losartan. CHF education provided. Recommend repeat TTE as an outpatient, 3 months. Cardiac rehabilitation as an outpatient. 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 All questions were answered. Thank you for involving us in the care of your patient. Please call with any questions. Subjective Principal diagnosis: Dyspnea Interval history: Patient seen and examined. Overall, reports she feels better. HR now NSR on amiodarone. s/p LHC - nonobstructive CAD. Recent viral illness - ? myocaritis Objective Vital Signs, Last 4 Hours Pulse Resp Pulse Ox 06/06/17 14:02 71 20 97 General: Conversant, No Apparent Distress HEENT: Atraumatic, Normocephaly, Mucus Membranes Moist Neck: No JVD, Normal carotid pulses Cardiac: Reg Rate and Rhythm, Normal S1 and S2, No Murmur Lungs: Normal Breath Sounds, No Wheeze, Rales, Rhonchi Neuro: Alert and responsive, No focal deficits noted Abdomen: Soft, Non-Tender Skin: No rashes noted on visualized skin Musculoskeletal: No Chest Wall Tenderness Extremities: No Clubbing, No Cyanosis, No Edema Results 06/05/17 16:43 06/06/17 01:08 Lab Results 0206/05/17 06/06/17 16:43 16:43 01:08 WBC 7.1 Hgb 10.9 L Hct 32.3 L Plt Count 181 INR 1.1 APTT 33.9 D Sodium 140 Potassium 3.7 Chloride 110 H Carbon Dioxide 23 BUN 11 Creatinine 0.58 L Glucose 121 H Calcium 8.5 L Magnesium 2.0 Lipase 40 06/06/17 06/06/17 01:08 10:08 WBC Hgb Hct Plt Count INR APTT > 360.0 H* D 98.2 H D Sodium Potassium Chloride Carbon Dioxide BUN Creatinine Glucose Calcium Magnesium Lipase - Imaging and Cardiology Echo: report reviewed Cardiac cath: report reviewed Consult Discharge Plan - Plan Referrals: Lorene Barahona MD [Primary Care Provider] -
[2017-06-06] MEDS: Amiodarone Premix 360 MG/200 ML BAG IVC SCH (20:43)
[2017-06-06] MEDS: amLODIPine 5 MG TABLET PO SCH (20:44)
--- NOTE | 2017-06-06 21:32 | Anesthesia Evaluation PreOp ---
<Jazmin Aguillon - Last Filed: 06/06/17 21:30> Date of Encounter: 06/06/17 - Past History Planned Operation: EGD Cardiac History: NC (NSTEMI with peak troponon 1.13 s/p [facility] 06-05-17 showing moderated 2v disease (unchanged from [id number]), LVEF 45% with focal wall motion abnormality - probable myocarditis), CHF (non-ischemic cardiomyopathy; recent viral syndrome; myocarditis most likely with TTE 06-04-17 showing newly decreased EF to 35%; mod pulm htn), HTN, Hyperlipidemia, Arrhythmia (a fib with RVR this admission - xarelto currently being held) Pulmonary History: Denies Any Significant HX BEATER OPERATOR History: Denies Any Significant HX Other Medical History: GERD Anesthesia History: No Prior Anesthetic Complications, Past Anesthesia ( hysterectomy, EGD, EGD with dilation, colonoscopy) Alcohol Use: none Drug use: none Medications and Allergies Aspirin 81 mg PO DAILY 06/04/17 [History] Atorvastatin [Lipitor] 40 mg PO 0900 06/04/17 [History] Carvedilol 12.5 mg PO BID 06/04/17 [History] Losartan/Hydrochlorothiazide [Losartan-Hctz 50-12.5 mg Tab] 1 each PO DAILY [History] Omeprazole [PriLOSEC] 40 mg PO BID 06/04/17 [History] Ubidecarenone/Vit E Acetate [Co Q-10 100 mg Softgel] 1 each PO DAILY 06/04/17 [ History] amLODIPine [Norvasc] 5 mg PO HS 06/04/17 [History] 3 Allergy/AdvReac Type Severity Reaction Status Date / Time Corticosteroids Allergy Nausea Verified 06/03/17 21:04 (Glucocorticoids) famotidine [From Pepcid] Allergy Nausea Verified 06/03/17 21:04 - Meds/Allergy Pre-op Review Medications Reviewed: Yes Allergies Reviewed: Yes Beta Blockers on Current Med List: Yes (coreg) If Beta Blockers taken, Date/Time (Last Dose taken): 06-06-17 coreg 12.5 mg 17:46 Anesthesia Results - Labs 06/05/17 16:43 06/06/17 01:08 - Imaging EKG: report reviewed, image reviewed (SINUS RHYTHM LEFT BUNDLE BRANCH BLOCK [120 + ms QRS DURATION, 80+ ms Q/S IN V1/V2, 85+ ms R IN I/aVL/V5/V6]) Additional studies: 06-04-17 TTE: EV/EV echocardiogram Impressions: LVEF 35%. Normal LV chamber size and wall thickkness. Segmental left ventricular systolic dysfunction. Mild left ventricular diastolic dysfunction. Normal right ventricular structure and function. Mild mitral regurgitation. Mild tricuspid regurgitation. Moderate pulmonary hypertension. Estimated RVSP is 50 mmHg. 06-05-17 Cardiac cath: Indications: Non-Stemi Impressions: There is moderate two vessel coronary artery disease, unchanged from [id number] The left ventricle has contractility EF 45% with focal wall motion abnormality - probable myocarditis. Recommendations: Optimal medical therapy of patient's disease. Aggressive risk factor modification. 06-06-17 Cardiology progress note: Regarding medications below, patient not currently on losartan. She does take losartan/HCTZ at home. Recommend stopping this medication. Blood pressure relatively low. Start low-dose lisinopril 2.5 mg daily. Start Lasix 20 mg by mouth daily. To summarize: Continue aspirin, statin, Coreg therapy. Starting lisinopril 2.5 mg daily. Starting Lasix 20 mg daily. Change amiodarone to 200 mg twice daily after IV loading dose completed. Order already placed. Transition Heparin to Xareoto 20 mg daily after surgical evaluation complete. CHF education provided earlier today. We have arranged for outpatient cardiology follow-up. No further inpatient cardiology recommendations. Please call with any questions or concerns. Thanks, Gen Lacy DO, [facility] Anesthesia Exam Last Vital Signs Temp 98.3 F 06/06/17 19:07 Pulse 88 06/06/17 19:07 Resp 19 06/06/17 19:07 BP 132/80 06/06/17 19:07 Pulse Ox 95 06/06/17 19:07 Weight: 79 kg Anesthesia Assess/Plan ASA Score: 4 (Recent NSTEMI with peak troponon 1.13, current CHF exacerbation due to viral cardiomyopathy with reduced EF of 35%, new onset A fib with RVR - currently controlled, mod pulm htn per TTE) Anesthetic Plan: MAC Monitoring Plan: Standard Monitors Recovery Plan: PACU <Alonzo Mathis - Last Filed: 06/07/17 12:51> Date of Encounter: 06/07/17 Time of Encounter: 12:50 - Past History Cardiac History: NC, CHF, HTN, Hyperlipidemia, Arrhythmia Pulmonary History: Denies Any Significant HX BEATER OPERATOR History: Denies Any Significant HX Other Medical History: GERD Anesthesia History: No Prior Anesthetic Complications, Past Anesthesia Alcohol Use: none Drug use: none - Meds/Allergy Pre-op Review Medications Reviewed: Yes Allergies Reviewed: Yes Beta Blockers on Current Med List: Yes Anesthesia Results - Labs 06/07/17 03:41 06/07/17 03:41 - Imaging EKG: report reviewed, image reviewed Anesthesia Exam - HEENT Pupil (Motor): Pupils equal, EOMI Mallampati: III Oral Opening: Less than or equal to 3 - BEATER OPERATOR LOC: Oriented BEATER OPERATOR Motor: Normal RUE, Normal LUE, Normal RLE, Normal LLE, Normal Face BEATER OPERATOR Sensory: Normal: RUE, LUE, RLE, LLE, Face - Cardiac Rhythm: Regular Murmur: None JVD: No Carotid Bruit: No - Pulmonary Breath Sounds: bilateral Clear Respiratory Effort: Symmetrical Anesthesia Assess/Plan ASA Score: 4 Anesthetic Plan: MAC Monitoring Plan: Standard Monitors Recovery Plan: PACU (Discussed MAC, agrees to proceed)
--- NOTE | 2017-06-06 22:22 | Internal Med Progress Note ---
Date of Encounter: 06/06/17 Time of Encounter: 10:00 - Assessment and plan (1) Epigastric fullness Current Visit: Yes Status: Acute Assessment and plan: with c/o RUQ pain for months prior to admission. Evaluated by General Surgery who recommends EGD with possibility of dilation. Cont PPI. Hold heparin gtt 3 hours prior to scope. Hold on start of Xarelto until after EGD complete. NPO after midnight (2) Atrial fibrillation with RVR Current Visit: Yes Status: Acute Assessment and plan: new onset after [facility] with heart rates in one teens to 120s. Now rate controlled. Optimize electrolytes. Start PO amiodarone per Cardiology recommendations. Cont heparin gtt for now, start Xarelto once EGD complete. Cardiology following. (3) CAD (coronary artery disease) Current Visit: Yes Status: Acute Assessment and plan: per hx. Presented with chest pressure. Serial troponins negative, EKG without acute ST changes. Heparin drip was started on arrival given her cardiac history and presentation. TTE with EF 35%, left ventricular systolic dysfunction. 06/05/17 [facility] with non-obstructive CAD reportedly with myocarditis ( ? recent flu). Suspect possible GI source for chest discomfort as well. Continue home ASA, BB, statin. GI work-up as noted above. Qualifiers: Coronary Disease-Associated Artery/Lesion type: [place] artery [place] vs. transplanted heart: [place] heart Associated angina: with unstable angina Qualified Code(s): I25.110 - Atherosclerotic heart disease of [place] coronary artery with unstable angina pectoris (4) GERD (gastroesophageal reflux disease) Current Visit: Yes Status: Acute Assessment and plan: per hx. patient reports right upper quadrant pain with associated reflux/chest pressure. Continue PPI. RUQ with cholelithiasis. Plan as noted above. Qualifiers: Esophagitis presence: esophagitis presence not specified Qualified Code(s) : K21.9 - Gastro-esophageal reflux disease without esophagitis (5) DVT prophylaxis Current Visit: Yes Status: Acute Assessment and plan: hep gtt - Subjective Interval history: Seen and examined at bedside. Unevebtful night. No CP or SOB. Still with intermittent RUQ pain. - Constitutional Vitals: Temp Pulse Resp BP Pulse Ox 98.3 F 88 19 132/80 95 06/06/17 19:07 06/06/17 19:07 06/06/17 19:07 06/06/17 19:07 06/06/17 19:07 General appearance: Present: A&O X 3, no acute distress, answers questions appropriately - Head Head exam: Present: atraumatic, normocephalic - Eye Eye exam: Present: PERRL, conjuntiva pink, sclera anicteric Pupils: Present: PERRL - Neck Neck exam general surgery: Present: supple, trachea midline. Absent: lymphadenopathy - Respiratory Respiratory exam: Present: CTAB. Absent: accessory muscle use, rales, rhonchi, wheezes - Cardiovascular Cardiovascular exam: Present: RRR, +S1, +S2. Absent: diastolic murmur, gallop, rubs, systolic murmur - GI/Abdominal GI/Abdominal exam: Present: normal bowel sounds, soft, no peritoneal signs. Absent: distended, tenderness - Extremities Exam Extremities exam: Present: warm, radial pulses palpable and symmetrical. Absent : calf tenderness, cyanotic, pedal edema - Neurological Exam Neurological exam: Present: CN II-XII intact, oriented X3, no focal deficits. Absent: pronater drift, facial droop, speech deficit - Skin Skin exam: Present: dry, intact Internal Medicine: Result - Labs CBC & Chem 7: 06/05/17 16:43 06/06/17 01:08 Labs: BMP 06/06/17 01:08 Sodium 140 Potassium 3.7 Chloride 110 H Carbon Dioxide 23 BUN 11 Creatinine 0.58 L Glucose 121 H Calcium 8.5 L - ABG Interpretation ABG results: PT/INR, D-dimer PT 12.1 Seconds (9.4-12.1) 06/05/17 16:43 Consult Discharge Plan - Plan Referrals: Lorene Barahona MD [Primary Care Provider] -
[2017-06-07] MEDS: Heparin 25,000 UNIT/500 ML D5W 25,000 UNIT/500 ML BAG IVC SCH ×2 (00:33→17:26)
[2017-06-07 04:18] LABS: Hematocrit 32.1 % (35.3-44.9); Hemoglobin 10.2 g/dL (11.5-15.4); Mean Corpuscular HGB Conc 31.8 g/dL (31.6-35.5); Mean Corpuscular Hemoglobin 27.3 pg (28.0-33.3); Mean Corpuscular Volume 86.1 fL (83.0-100.0); Mean Platelet Volume 11.7 fL (9.4-12.4); Platelet Count 165 K/mcL (140-400); Red Blood Count 3.73 M/mcL (3.82-4.97); Red Cell Distribution Width 14.6 % (11.5-14.5)
[2017-06-07 04:36] LABS: BUN/Creatinine Ratio 17 (6-26); Blood Urea Nitrogen 11 mg/dL (8-23); Calcium 8.8 mg/dL (8.6-10.3); Carbon Dioxide 27 mEq/L (23-29); Chloride 108 mEq/L (98-107); Glucose 100 mg/dL (70-105); Osmolality,Calculated 291 (280-300); Potassium 3.3 mEq/L (3.5-5.1); Sodium 141 mEq/L (136-145); eGFR For African Americans > 60 (> 60); eGFR For Non-African Americans > 60 (> 60)
[2017-06-07] MEDS: Pantoprazole 40 MG VIAL IVP SCH ×2 (06:14→16:25)
[2017-06-07] MEDS: Furosemide 20 MG TABLET PO SCH (08:04)
[2017-06-07] MEDS: Aspirin 81 MG TAB.CHEW PO SCH (08:04)
[2017-06-07] MEDS: *HR* Amiodarone 200 MG TABLET PO SCH (08:05)
[2017-06-07] MEDS ORDERED: *HR* Propofol 200 MG/20 ML VIAL IVP ONE (12:57)
--- NOTE | 2017-06-07 13:38 | Event Note ---
Date of Encounter: 06/07/17 Time of Encounter: 13:37 EGD completed. Noted petechiae in the stomach biopsy 2. Irregular Z line also biopsied. We will place order for clear liquids and okay to restart heparin drip without bolus and 3 hours. Monitor closely for evidence of bleeding by checking CBC. Will follow up with patient once biopsy results have been obtained. Thank you very much.
--- NOTE | 2017-06-07 18:57 | Internal Med Progress Note ---
Date of Encounter: 06/07/17 Time of Encounter: 11:00 - Assessment and plan (1) Atrial fibrillation with RVR Current Visit: Yes Status: Acute Assessment and plan: new onset after [facility] with heart rates in one teens to 120s. Now rate controlled. Optimize electrolytes. Start PO amiodarone per Cardiology recommendations. Cont heparin gtt for now, start Xarelto once EGD complete. Cardiology following. (2) CAD (coronary artery disease) Current Visit: Yes Status: Acute Assessment and plan: per hx. Presented with chest pressure. Serial troponins negative, EKG without acute ST changes. Heparin drip was started on arrival given her cardiac history and presentation. TTE with EF 35%, left ventricular systolic dysfunction. 06/05/17 [facility] with non-obstructive CAD reportedly with myocarditis ( ? recent flu). Suspect possible GI source for chest discomfort as well. Continue home ASA, BB, statin. GI work-up as noted above. Qualifiers: Coronary Disease-Associated Artery/Lesion type: [place] artery [place] vs. transplanted heart: [place] heart Associated angina: with unstable angina Qualified Code(s): I25.110 - Atherosclerotic heart disease of [place] coronary artery with unstable angina pectoris (3) GERD (gastroesophageal reflux disease) Current Visit: Yes Status: Acute Assessment and plan: per hx. patient reports right upper quadrant pain with associated reflux/chest pressure. Continue PPI. RUQ with cholelithiasis. GI consulted and EGD showed petechiae in the stomach biopsy 2 Qualifiers: Esophagitis presence: esophagitis presence not specified Qualified Code(s) : K21.9 - Gastro-esophageal reflux disease without esophagitis - Subjective Interval history: EGD performed by surgery today which showed petechiae in the stomach; biopsy 2 Will restart anticoagulation and monitor hemoglobin overnight - Constitutional Vitals: Temp Pulse Resp BP Pulse Ox 98.3 F 66 20 113/62 96 06/07/17 18:33 06/07/17 18:33 06/07/17 18:33 06/07/17 18:33 06/07/17 18:33 General appearance: Present: A&O X 3, no acute distress, answers questions appropriately - Respiratory Respiratory exam: Present: CTAB. Absent: accessory muscle use, rales, rhonchi, wheezes - Cardiovascular Cardiovascular exam: Present: RRR, +S1, +S2. Absent: diastolic murmur, gallop, rubs, systolic murmur Internal Medicine: Result - Labs CBC & Chem 7: 06/07/17 03:41 06/07/17 03:41 Labs: Short CBC 06/07/17 Range/Units 03:41 WBC 5.5 (4.3-11.1) K/mcL Hgb 10.2 L (11.5-15.4) g/dL Hct 32.1 L (35.3-44.9) % Plt Count 165 (140-400) K/mcL BMP 06/07/17 03:41 Sodium 141 Potassium 3.3 L Chloride 108 H Carbon Dioxide 27 BUN 11 Creatinine 0.63 Glucose 100 Calcium 8.8 - ABG Interpretation ABG results: PT/INR, D-dimer PT 12.1 Seconds (9.4-12.1) 06/05/17 16:43 Consult Discharge Plan - Plan Referrals: Jack Lockhart, PERFORMANCE CONSULTANT [Advanced Practice Nurse] - (CARDIOLOGY OFFICE WILL CALL PATIENT AT HOME WITH FOLLOW UP APPOINTMENT) Lorene Barahona MD [Primary Care Provider] - 06/14/17 3:00 pm
[2017-06-07] MEDS: amLODIPine 5 MG TABLET PO SCH (21:00)
--- NOTE | 2017-06-07 21:56 | Electrocardiograph Report ---
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
[2017-06-08] MEDS: Pantoprazole 40 MG VIAL IVP SCH (06:07)
[2017-06-08 06:52] LABS: Activated Partial Thrombo Time 234.1 Seconds (26.0-36.0)
[2017-06-08 06:57] LABS: Heparin anti-factor XA UFH 0.8 IU/mL (0.30-0.70)
[2017-06-08] MEDS: Furosemide 20 MG TABLET PO SCH (08:16)
[2017-06-08] MEDS: *HR* Amiodarone 200 MG TABLET PO SCH (08:16)
[2017-06-08] MEDS: Aspirin 81 MG TAB.CHEW PO SCH (08:16)
[2017-06-08 09:23] LABS: Basophils % 0.5 %; Eosinophils # 0.1 K/mcL (0.0-0.6); Eosinophils % 1.4 %; Hematocrit 31.1 % (35.3-44.9); Lymphocytes # 1.4 K/mcL (0.6-4.6); Lymphocytes % 33.3 %; Mean Corpuscular HGB Conc 32.2 g/dL (31.6-35.5); Mean Corpuscular Hemoglobin 27.9 pg (28.0-33.3); Mean Corpuscular Volume 86.9 fL (83.0-100.0); Mean Platelet Volume 11.5 fL (9.4-12.4); Monocytes # 0.2 K/mcL (0.0-1.3); Monocytes % 5.8 %; Neutrophils # 2.5 K/mcL (1.6-8.9); Platelet Count 172 K/mcL (140-400); Red Blood Count 3.58 M/mcL (3.82-4.97); Red Cell Distribution Width 14.7 % (11.5-14.5)
[2017-06-08 09:44] LABS: BUN/Creatinine Ratio 14 (6-26); Blood Urea Nitrogen 9 mg/dL (8-23); Calcium 8.9 mg/dL (8.6-10.3); Carbon Dioxide 24 mEq/L (23-29); Chloride 107 mEq/L (98-107); Glucose 132 mg/dL (70-105); Osmolality,Calculated 291 (280-300); Potassium 3.6 mEq/L (3.5-5.1); Sodium 140 mEq/L (136-145); eGFR For African Americans > 60 (> 60); eGFR For Non-African Americans > 60 (> 60)
--- NOTE | 2017-06-08 14:19 | Discharge Summary ---
Date of Encounter: 06/08/17 Time of Encounter: 11:00 - Discharge Diagnosis (1) Atrial fibrillation with RVR Priority: Primary Status: Acute (2) CAD (coronary artery disease) Priority: Secondary Status: Acute Qualifiers: Coronary Disease-Associated Artery/Lesion type: [place] artery [place] vs. transplanted heart: [place] heart Associated angina: with unstable angina Qualified Code(s): I25.110 - Atherosclerotic heart disease of [place] coronary artery with unstable angina pectoris (3) GERD (gastroesophageal reflux disease) Priority: Secondary Status: Acute Qualifiers: Esophagitis presence: esophagitis presence not specified Qualified Code(s) : K21.9 - Gastro-esophageal reflux disease without esophagitis - Discharge Medications Prescriptions: Furosemide [Lasix] 20 mg PO DAILY #30 tablet Rivaroxaban [Xarelto] 20 mg PO DAILY@1700 #30 tablet Home Medications: Aspirin 81 mg PO DAILY 06/04/17 [History] Atorvastatin [Lipitor] 40 mg PO 0900 06/04/17 [History] Carvedilol 12.5 mg PO BID 06/04/17 [History] Losartan/Hydrochlorothiazide [Losartan-Hctz 50-12.5 mg Tab] 1 each PO DAILY [History] Omeprazole [PriLOSEC] 40 mg PO BID 06/04/17 [History] Ubidecarenone/Vit E Acetate [Co Q-10 100 mg Softgel] 1 each PO DAILY 06/04/17 [ History] amLODIPine [Norvasc] 5 mg PO HS 06/04/17 [History] Amiodarone [Cordarone] 200 mg PO DAILY tablet 06/08/17 [Rx] Furosemide [Lasix] 20 mg PO DAILY #30 tablet 06/08/17 [Rx] Rivaroxaban [Xarelto] 20 mg PO DAILY@1700 #30 tablet 06/08/17 [Rx] Allergies/Adverse Reactions: 3 Allergy/AdvReac Type Severity Reaction Status Date / Time Corticosteroids Allergy Nausea Verified 06/03/17 21:04 (Glucocorticoids) famotidine [From Pepcid] Allergy Nausea Verified 06/03/17 21:04 Procedures/tests Complete & Pending: Procedures Performed prior 72 hours Category Date Time Status abdominal ultrasound - limited [US abdomen limited] [US Exams 06/05/17 16:22 Completed ] Routine Date of admission: 06/04/17 12:29 Primary care physician: Lorene Barahona MD Consults: 06/06/17 11:51 Consult to Surgery [CONS] Routine Consulting Provider: Omid Schofield Reason for Consult: cholelithiasis Call Completed: Yes - Patient Status Disposition: Home, Self-Care Condition: Good - Discharge Instructions Follow Up With: Jack Lockhart, TEXTILE MACHINERY INSTRUCTOR [Advanced Practice Nurse] - (CARDIOLOGY OFFICE WILL CALL PATIENT AT HOME WITH FOLLOW UP APPOINTMENT) Lorene Barahona MD [Primary Care Provider] - 06/14/17 3:00 pm Hospital course: Patient is a 72-year-old female with past medical history significant for essential hypertension, coronary artery disease status post [place] and GERD who presented to the ER on 06/04/17 due to chest pain. She reported of substernal, pressure-like, 5/10 in intensity chest pain that started the day prior to admission while at rest. Associated with left shoulder pain and mid back pain and mild nonproductive cough. Denied aggravating and alleviating factors. In the ER, her initial workup was pertinent for troponin of 0.04. Her chest pain has currently resolved. Patient was admitted to the stepdown unit for ACS rule out. Cardiology was consulted and left heart catheterization on 06/05/17 showed non- obstructive coronary artery disease with myocarditis; questionable recent influenza. He also had new onset of atrial fibrillation after left heart catheterization and amiodarone was started per recommendations. She also reported right upper quadrant pain with associated reflux/chest pressure. She was placed on PPI and right upper quadrant ultrasound showed cholelithiasis. GI consulted and EGD showed petechiae in the stomach biopsy 2. She was started on Xarelto and heparin drip discontinued. Patient will follow up with primary care provider. - Time Spent with Patient Total time spent providing and/or coordinating discharge services: Less than 30 minutes - Constitutional Vitals: Temp Pulse Resp BP Pulse Ox 98.5 F 62 16 110/59 94 06/08/17 11:35 06/08/17 11:35 06/08/17 11:35 06/08/17 11:35 06/08/17 11:35 General appearance: Present: A&O X 3, no acute distress, answers questions appropriately - Respiratory Respiratory exam: Present: CTAB. Absent: accessory muscle use, rales, rhonchi, wheezes - Cardiovascular Cardiovascular exam: Present: RRR, +S1, +S2. Absent: diastolic murmur, gallop, rubs, systolic murmur
[2017-06-08 16:01] VITALS: BP 137/72
[2017-06-08] MEDS ORDERED: *HR* Rivaroxaban 10 MG TABLET PO SCH (17:00)
== END 2017-06-08 17:20 | disposition home or self-care (01) | DRG 286 ==
LOC: 2SOUTHHOLD 20:46 → EMEROO 20:46 → 2SOUTHHOLD 06-04 05:00 → SUATTDRO 06-04 12:29 → 2NNU 06-05 21:40
PROVIDERS: ADMIT Internal Medicine; ATTEND Hospitalist
PROC: ENDOEBX (2017-06-07 13:00)

== ENCOUNTER 2018-01-19 09:39 | Observation (INO) ==
[2018-01-19] MEDS ORDERED: Aspirin 81 MG TAB.CHEW PO ONE (09:45)
[2018-01-19] MEDS: Nitroglycerin 0.4 MG TAB.SUBL SL ONE ×2 (09:54→10:01)
--- NOTE | 2018-01-19 09:55 | Emergency Department Note ---
Disposition Clinical Impression: Chest pain Qualifiers: Chest pain type: other chest pain Qualified Code(s): R07.89 - Other chest pain Disposition: Admitted As Inpatient Condition: Fair General Adult HPI - General Stated complaint: chest pain Time Seen by Provider: 01/19/18 09:45 Source: patient, family Limitations: no limitations - Related Data Home Medications Medication Instructions Recorded Confirmed Aspirin 81 mg PO DAILY 06/04/17 01/19/18 Atorvastatin [Lipitor] 40 mg PO 0900 06/04/17 01/19/18 Carvedilol 12.5 mg PO BID 06/04/17 01/19/18 Losartan/Hydrochlorothiazide 1 each PO DAILY 06/04/17 01/19/18 [Losartan-Hctz 50-12.5 mg Tab] Omeprazole [PriLOSEC] 40 mg PO BID 06/04/17 01/19/18 Ubidecarenone/Vit E Acetate [Co 1 each PO DAILY 06/04/17 01/19/18 Q-10 100 mg Softgel] Potassium Chloride [Klor-Con 10] 20 meq PO DAILY 11/26/17 01/19/18 Previous Rx's Medication Instructions Recorded Furosemide [Lasix] 20 mg PO DAILY #30 tablet 06/08/17 Rivaroxaban [Xarelto] 20 mg PO DAILY@1700 #30 tablet 06/08/17 Allergies Allergy/AdvReac Type Severity Reaction Status Date / Time Corticosteroids Allergy Nausea Verified 06/03/17 21:04 (Glucocorticoids) famotidine [From Pepcid] Allergy Nausea Verified 06/03/17 21:04 Past Medical History - Past Medical History Medical history: Reports: cancer (basal cell carcinoma), cardiomyopathy, coronary artery disease, GERD (gastritis), hypertension, myocardial infarction, other (Rosacea) Surgical history: Reports: hysterectomy, other (EGD- 05/21/2013, EGD with dilation- 07/02/17, Colonoscopy- 07/02/17) Psychiatric history: Reports: no psych history - Social History Smoking Status: Former smoker Smokeless Tobacco Status: No Alcohol use: Reports: none Drug use: Reports: none Course Vital Signs Temperature 98.5 F 01/19/18 09:40 Pulse Rate 65 01/19/18 09:40 Respiratory Rate 18 01/19/18 09:40 Blood Pressure 183/86 01/19/18 09:40 O2 Sat by Pulse Oximetry 99 09/30/18 09:40 Temperature 98.1 F 01/19/18 18:48 Pulse Rate 59 01/19/18 18:48 Respiratory Rate 16 01/19/18 18:48 Blood Pressure 139/70 01/19/18 18:48 O2 Sat by Pulse Oximetry 97 01/19/18 20:05 Oxygen Delivery Oxygen Delivery Room Air Medical Decision Making - Lab Data Result diagrams: 01/19/18 10:18 01/19/18 10:18 Lab Results 01/19/18 01/19/18 01/19/18 Range/Units 10:18 10:18 10:18 WBC 4.1 L (4.3-11.1) K/mcL RBC 4.09 (3.82-4.97) M/mcL Hgb 10.9 L (11.5-15.4) g/dL Hct 34.1 L (35.3-44.9) % MCV 83.4 (83.0-100.0) fL MCH 26.7 L (28.0-33.3) pg MCHC 32.0 (31.6-35.5) g/dL RDW TNP Plt Count 165 (140-400) K/mcL MPV 11.2 (9.4-12.4) fL Immature Gran % 0.2 (0-4) % Seg Neutrophils % 66.9 % Lymphocytes % 24.3 % Monocytes % 6.1 % Eosinophils % 2.0 % Basophils % 0.5 % Neutrophils # 2.7 (1.6-8.9) K/mcL Lymphocytes # 1.0 (0.6-4.6) K/mcL Monocytes # 0.3 (0.0-1.3) K/mcL Eosinophils # 0.1 (0.0-0.6) K/mcL Basophils # 0.0 (0.0-0.2) K/mcL Platelet Estimate Normal (Normal) Anisocytosis 2+ A (Not Present) Microcytosis Present A (Not Present) Sodium 139 (136-145) mEq/L Potassium 4.1 (3.5-5.1) mEq/L Chloride 104 (98-107) mEq/L Carbon Dioxide 26 (23-29) mEq/L BUN 13 (8-23) mg/dL Creatinine 0.74 (0.60-1.20) mg/dL Est GFR ( Amer) > 60 (> 60) Est GFR (Non-Af Amer) > 60 (> 60) BUN/Creatinine Ratio 18 (6-26) Glucose 109 H (70-105) mg/dL Calculated Osmolality 289 (280-300) Calcium 9.3 (8.6-10.3) mg/dL Troponin I < 0.03 (< 0.04) ng/mL B-Natriuretic Peptide 132 H (Less than 100) pg/mL Blood Type Antibody Screen 01/19/18 Range/Units 10:18 WBC (4.3-11.1) K/mcL RBC (3.82-4.97) M/mcL Hgb (11.5-15.4) g/dL Hct (35.3-44.9) % MCV (83.0-100.0) fL MCH (28.0-33.3) pg MCHC (31.6-35.5) g/dL RDW Plt Count (140-400) K/mcL MPV (9.4-12.4) fL Immature Gran % (0-4) % Seg Neutrophils % % Lymphocytes % % Monocytes % % Eosinophils % % Basophils % % Neutrophils # (1.6-8.9) K/mcL Lymphocytes # (0.6-4.6) K/mcL Monocytes # (0.0-1.3) K/mcL Eosinophils # (0.0-0.6) K/mcL Basophils # (0.0-0.2) K/mcL Platelet Estimate (Normal) Anisocytosis (Not Present) Microcytosis (Not Present) Sodium (136-145) mEq/L Potassium (3.5-5.1) mEq/L Chloride (98-107) mEq/L Carbon Dioxide (23-29) mEq/L BUN (8-23) mg/dL Creatinine (0.60-1.20) mg/dL Est GFR ( Amer) (> 60) Est GFR (Non-Af Amer) (> 60) BUN/Creatinine Ratio (6-26) Glucose (70-105) mg/dL Calculated Osmolality (280-300) Calcium (8.6-10.3) mg/dL Troponin I (< 0.04) ng/mL B-Natriuretic Peptide (Less than 100) pg/mL Blood Type O POSITIVE Antibody Screen NEGATIVE Attestation Statement - Attestation Attestation: Resident Attestation: I examined this patient and my medical decision making was reviewed with the Resident Physician. I agree with the documented findings, disposition and treatment plan as described except to the extent set forth below. We independently had [id number] contact with the patient. Patient with a past medical history of atrial atrial fibrillation on [place], cardia myopathy, coronary artery disease, hypertension presents to the emergency department for evaluation of chest pressure that started last night at 5 PM. Patient has had previous cardiac catheter back in May which she was told did not need intervention. The patient's pain today started with exertion. Has been constant in nature. EKG without significant change. Patient's chest pain did alleviate after 2 nitroglycerin. Patient troponin is negative. Patient will be admitted for further evaluation. No acute distress, irregular rate and rhythm, clear to auscultation bilaterally , no significant peripheral edema Please see resident note for further details and disposition.
--- NOTE | 2018-01-19 10:00 | Emergency Department Note ---
Disposition Clinical Impression: Chest pain Qualifiers: Chest pain type: unspecified Qualified Code(s): R07.9 - Chest pain, unspecified Disposition: Admitted As Inpatient Condition: Fair General Adult HPI - General Chief complaint: ED Chest Pain Stated complaint: chest pain Time Seen by Provider: 01/19/18 09:45 Source: patient, EMS Mode of arrival: EMS Limitations: no limitations Nursing Notes Reviewed: Yes Vital Signs Reviewed: Yes - History of Present Illness HPI Narrative: 72-year-old female with significant past medical history of atrial fibrillation currently on xarelto, hypertension, hyperlipidemia presenting to the emergency department chief complaint of chest pain. Patient states yesterday she started having substernal chest pain and nausea while she was outside sleeping the street. She states the pain has been coming and going in her substernal area. She states this feeling is similar to when she was previously diagnosed with an IA. Denies having any stents or CABG. Patient did have catheterization in May that showed some moderate disease but no intervention was completed at that time. Medical management was completed. Patient states she is still having some chest pressure at this time. Pain Scale: 5 - Related Data Home Medications Medication Instructions Recorded Confirmed Aspirin 81 mg PO DAILY 06/04/17 01/19/18 Atorvastatin [Lipitor] 40 mg PO 0900 06/04/17 01/19/18 Carvedilol 12.5 mg PO BID 06/04/17 01/19/18 Losartan/Hydrochlorothiazide 1 each PO DAILY 06/04/17 01/19/18 [Losartan-Hctz 50-12.5 mg Tab] Omeprazole [PriLOSEC] 40 mg PO BID 06/04/17 01/19/18 Ubidecarenone/Vit E Acetate [Co 1 each PO DAILY 06/04/17 01/19/18 Q-10 100 mg Softgel] Potassium Chloride [Klor-Con 10] 20 meq PO DAILY 11/26/17 01/19/18 Previous Rx's Medication Instructions Recorded Furosemide [Lasix] 20 mg PO DAILY #30 tablet 06/08/17 Rivaroxaban [Xarelto] 20 mg PO DAILY@1700 #30 tablet 06/08/17 Allergies Allergy/AdvReac Type Severity Reaction Status Date / Time Corticosteroids Allergy Nausea Verified 06/03/17 21:04 (Glucocorticoids) famotidine [From Pepcid] Allergy Nausea Verified 06/03/17 21:04 All systems ED: reviewed and negative except as stated. Constitutional: Denies: fever, chills, weakness Eyes: Reports: as per HPI ENT ED: Reports: as per HPI Cardiovascular: Reports: chest pain. Denies: palpitations, dyspnea on exertion Respiratory: Denies: cough, dyspnea, wheezes Gastrointestinal: Reports: nausea. Denies: abdominal pain Genitourinary: Reports: as per HPI Musculoskeletal: Reports: as per HPI Integumentary: Reports: as per HPI Neurological: Denies: numbness, paresthesias Psychiatric: Reports: as per HPI Endocrine: Reports: as per HPI Hematological/Lymphatic: Reports: as per HPI Allergic/Immunologic: Reports: as per HPI Past Medical History - Past Medical History Attestation: Yes The following information was validated with the patient. Medical history: Reports: cancer (basal cell carcinoma), cardiomyopathy, coronary artery disease, GERD (gastritis), hypertension, myocardial infarction, other (Rosacea) Surgical history: Reports: hysterectomy, other (EGD- 05/21/2013, EGD with dilation- 07/02/17, Colonoscopy- 07/02/17) Psychiatric history: Reports: no psych history - Social History Smoking Status: Former smoker Smokeless Tobacco Status: No Alcohol use: Reports: none Drug use: Reports: none Physical Exam - General Limitations: no limitations General appearance: alert, in no apparent distress - Head Head exam: atraumatic, normocephalic, normal inspection - Eye Eye exam: Present: normal appearance. Absent: scleral icterus, conjunctival injection - ENT ENT exam: normal exam, mucous membranes moist - Neck Neck exam: Present: normal inspection, full ROM. Absent: tenderness, meningismus - Chest Chest inspection: Present: normal inspection, symmetric chest wall rise. Absent : tenderness, rash - Respiratory Respiratory exam: Present: normal lung sounds bilaterally. Absent: respiratory distress, wheezes - Cardiovascular Cardiovascular exam: Present: regular rate, normal rhythm, normal heart sounds - Abdominal Exam Abdominal exam: Present: soft, Non-Tender. Absent: distention, guarding, rebound - Extremities Exam Extremities exam: Present: full ROM, other (1+ pitting edema bilateral lower extremities) - Neurological Exam Neurological exam: Present: alert, oriented X3 - Psychiatric Psychiatric exam: Present: normal affect, normal mood - Skin Skin exam: Present: warm, intact Course Course Narrative: 72-year-old female presenting to the emergency department chief complaint of chest pain. Patient still having some mild chest pressure at this time. She is alert and oriented 3 in room in stable vital signs. Due to patient's heart score being greater than 4 we will plan to admit her pending laboratory analysis. We will obtain CBC, BMP, troponin, chest x-ray and EKG. Patient already took full dose aspirin at home. We will also do a nitroglycerin trial. Patient agrees with this plan. - Reevaluation(s) Reevaluation #1: Patient's laboratory analysis shows chronic anemia but otherwise benign. Patient is chest pain-free after 2 nitros in the nitroglycerin trial. Patient EKG unchanged. Due to patient's heart score being greater than 4 we will plan to admit her for further chest pain workup. Patient is alert and oriented 3 in the room with stable vital signs here patient agrees with this plan. I spoke with the hospitalist commissioning agent Dr. Denson who agrees to accept the patient at this time. Vital Signs Temperature 98.5 F 01/19/18 09:40 Pulse Rate 65 01/19/18 09:40 Respiratory Rate 18 01/19/18 09:40 Blood Pressure 183/86 01/19/18 09:40 O2 Sat by Pulse Oximetry 99 01/19/18 09:40 Temperature 98.5 F 01/19/18 09:40 Pulse Rate 55 01/19/18 10:49 Respiratory Rate 14 01/19/18 10:49 Blood Pressure 137/70 01/19/18 10:49 O2 Sat by Pulse Oximetry 99 01/19/18 10:49 Oxygen Delivery Oxygen Delivery Room Air Medical Decision Making - Lab Data Result diagrams: 01/19/18 10:18 01/19/18 10:18 Lab Results 01/19/18 01/19/18 01/19/18 Range/Units 10:18 10:18 10:18 WBC 4.1 L (4.3-11.1) K/mcL RBC 4.09 (3.82-4.97) M/mcL Hgb 10.9 L (11.5-15.4) g/dL Hct 34.1 L (35.3-44.9) % MCV 83.4 (83.0-100.0) fL MCH 26.7 L (28.0-33.3) pg MCHC 32.0 (31.6-35.5) g/dL RDW TNP Plt Count 165 (140-400) K/mcL MPV 11.2 (9.4-12.4) fL Immature Gran % 0.2 (0-4) % Seg Neutrophils % 66.9 % Lymphocytes % 24.3 % Monocytes % 6.1 % Eosinophils % 2.0 % Basophils % 0.5 % Neutrophils # 2.7 (1.6-8.9) K/mcL Lymphocytes # 1.0 (0.6-4.6) K/mcL Monocytes # 0.3 (0.0-1.3) K/mcL Eosinophils # 0.1 (0.0-0.6) K/mcL Basophils # 0.0 (0.0-0.2) K/mcL Platelet Estimate Normal (Normal) Anisocytosis 2+ A (Not Present) Microcytosis Present A (Not Present) Sodium 139 (136-145) mEq/L Potassium 4.1 (3.5-5.1) mEq/L Chloride 104 (98-107) mEq/L Carbon Dioxide 26 (23-29) mEq/L BUN 13 (8-23) mg/dL Creatinine 0.74 (0.60-1.20) mg/dL Est GFR ( Amer) > 60 (> 60) Est GFR (Non-Af Amer) > 60 (> 60) BUN/Creatinine Ratio 18 (6-26) Glucose 109 H (70-105) mg/dL Calculated Osmolality 289 (280-300) Calcium 9.3 (8.6-10.3) mg/dL Troponin I < 0.03 (< 0.04) ng/mL B-Natriuretic Peptide 132 H (Less than 100) pg/mL Blood Type Antibody Screen 01/19/18 Range/Units 10:18 WBC (4.3-11.1) K/mcL RBC (3.82-4.97) M/mcL Hgb (11.5-15.4) g/dL Hct (35.3-44.9) % MCV (83.0-100.0) fL MCH (28.0-33.3) pg MCHC (31.6-35.5) g/dL RDW Plt Count (140-400) K/mcL MPV (9.4-12.4) fL Immature Gran % (0-4) % Seg Neutrophils % % Lymphocytes % % Monocytes % % Eosinophils % % Basophils % % Neutrophils # (1.6-8.9) K/mcL Lymphocytes # (0.6-4.6) K/mcL Monocytes # (0.0-1.3) K/mcL Eosinophils # (0.0-0.6) K/mcL Basophils # (0.0-0.2) K/mcL Platelet Estimate (Normal) Anisocytosis (Not Present) Microcytosis (Not Present) Sodium (136-145) mEq/L Potassium (3.5-5.1) mEq/L Chloride (98-107) mEq/L Carbon Dioxide (23-29) mEq/L BUN (8-23) mg/dL Creatinine (0.60-1.20) mg/dL Est GFR ( Amer) (> 60) Est GFR (Non-Af Amer) (> 60) BUN/Creatinine Ratio (6-26) Glucose (70-105) mg/dL Calculated Osmolality (280-300) Calcium (8.6-10.3) mg/dL Troponin I (< 0.04) ng/mL B-Natriuretic Peptide (Less than 100) pg/mL Blood Type O POSITIVE Antibody Screen NEGATIVE - EKG Data EKG #1 EKG attestation: Yes I reviewed and interpreted this EKG. EKG results narrative: Sinus rhythm. 62 beats per minute. Left bundle branch block. TX interval 171 , QRS 127, QTC 432. No sign of acute ST segment elevation or ischemia. Compared to previous EKG completed on 07/15/2017 no significant changes noted
[2018-01-19 10:35] LABS: Basophils % 0.5 %; Eosinophils # 0.1 K/mcL (0.0-0.6); Hematocrit 34.1 % (35.3-44.9); Hemoglobin 10.9 g/dL (11.5-15.4); Immature Granulocytes % 0.2 % (0-4); Lymphocytes % 24.3 %; Mean Corpuscular Hemoglobin 26.7 pg (28.0-33.3); Mean Corpuscular Volume 83.4 fL (83.0-100.0); Mean Platelet Volume 11.2 fL (9.4-12.4); Monocytes # 0.3 K/mcL (0.0-1.3); Monocytes % 6.1 %; Neutrophils # 2.7 K/mcL (1.6-8.9); Platelet Count 165 K/mcL (140-400); Red Blood Count 4.09 M/mcL (3.82-4.97); Segmented Neutrophils % 66.9 %
[2018-01-19 10:56] LABS: BUN/Creatinine Ratio 18 (6-26); Blood Urea Nitrogen 13 mg/dL (8-23); Calcium 9.3 mg/dL (8.6-10.3); Carbon Dioxide 26 mEq/L (23-29); Chloride 104 mEq/L (98-107); Glucose 109 mg/dL (70-105); Osmolality,Calculated 289 (280-300); Potassium 4.1 mEq/L (3.5-5.1); Sodium 139 mEq/L (136-145); eGFR For Non-African Americans > 60 (> 60)
[2018-01-19 10:57] LABS: Anisocytosis 2+ (Not Present); Microcytosis Present (Not Present)
[2018-01-19 10:58] LABS: Platelet Estimate Normal (Normal); Troponin I < 0.03 ng/mL (< 0.04)
[2018-01-19] MEDS ORDERED: Acetaminophen 325 MG TABLET PO PRN (12:58)
[2018-01-19] MEDS ORDERED: Naloxone 0.4 MG/ML INJ IVP PRN (12:58)
[2018-01-19] MEDS ORDERED: Nitroglycerin 0.4 MG TAB.SUBL SL PRN (13:01)
--- NOTE | 2018-01-19 13:15 | Internal Med History&Physical ---
<JaedovcyrusJefferson simmons - Last Filed: 01/19/18 13:57> Date of Encounter: 01/19/18 Time of Encounter: 12:15 Internal Medicine - H&P: HPI Chief complaint: CP Admitted From: Emergency Dept Plans for Post Hospital Care: Home History of present illness: Ms. Valdez is a 72 year old female w/PMH of basal cell carcinoma, cardiomyopathy, CAD, GERD, HTN, HLD, previous myocardial infarction in May 2017 without stent placement, and rosacea presents from the ED with chief complaint of chest pain that began yesterday while the patient was sweeping outside. Patient reports pain as centralized in her chest, constant, and a combination of sharp and stabbing with pressure. Associated symptoms: Nausea, SOB, and shakiness. Pain alleviated with nitroglycerin today in the ED, otherwise no alleviating factors. Patient denies history of any stent placements. Patient denies recent illness, fever, chills, vomiting, diaphoresis , changes in vision, headache, unusual bleeding, abdominal pain, diarrhea, constipation, dizziness, lightheadedness, numbness, tingling, pre-syncope, or syncope. Past Med Surg Social Fam HX - Past Medical History Source: patient, old records reviewed, obtained from family Medical history: cardiomyopathy, coronary artery disease, GERD, hypertension, myocardial infarction (May 2017), other Psychiatric history: no psych history - Past Surgical History Surgical History: hysterectomy (Total), other Additional surgical history: egd/colon, heart cath - Social History Smoking Status: Former smoker Packs per day: 1-2 PPD - Reports quitting in 1971 Smokeless Tobacco Status: No Alcohol use: none Drug use: none Current living situation: Home, With Family Activity Level: Independent ambulation Recent Out of Country Travel Within the Last 8 Weeks: No Exposure or Possible Exposure to Illness During Travel: No - Family History Mother Race: Family Member Ethnicity: Non- Living Status: Age at : 71 Cause of : OR Hx Family Cardiac Disorders: Yes (OR) Hx Family Endocrine Disorder: Yes (DM) Hx Family Neuromuscular Disorders: Yes (Parkinson's disease) Father Race: Family Member Ethnicity: Non- Living Status: Age at : 72 Cause of : Lung cancer Hx Family Cancer: Yes (Lung) Sister Race: Family Member Ethnicity: Non- Living Status: Age at : 33 Cause of : following open heart surgery Hx Family Cardiac Disorders: Yes (Heart disease) Brother History Unknown: Yes Race: Family Member Ethnicity: Non- Living Status: Still Living Internal Medicine - H&P: Meds Aspirin 81 mg PO DAILY 06/04/17 [History] Atorvastatin [Lipitor] 40 mg PO 0900 06/04/17 [History] Carvedilol 12.5 mg PO BID 06/04/17 [History] Losartan/Hydrochlorothiazide [Losartan-Hctz 50-12.5 mg Tab] 1 each PO DAILY [History] Omeprazole [PriLOSEC] 40 mg PO BID 06/04/17 [History] Ubidecarenone/Vit E Acetate [Co Q-10 100 mg Softgel] 1 each PO DAILY 06/04/17 [ History] Furosemide [Lasix] 20 mg PO DAILY #30 tablet 06/08/17 [Rx] Rivaroxaban [Xarelto] 20 mg PO DAILY@1700 #30 tablet 06/08/17 [Rx] Potassium Chloride [Klor-Con 10] 20 meq PO DAILY 11/26/17 [History] 3 Allergy/AdvReac Type Severity Reaction Status Date / Time Corticosteroids Allergy Nausea Verified 06/03/17 21:04 (Glucocorticoids) famotidine [From Pepcid] Allergy Nausea Verified 06/03/17 21:04 All Systems PM: A 10-system review of systems was performed and is negative for pertinent findings except as documented above in the HPI. - Constitutional Constitutional: as per HPI, no chills, no fever(s), no night sweats - EENT Eyes: no change in vision, no discharge, no pain, no photophobia Ears: no ear discharge, no ear pain, no tinnitus Nose, mouth and throat: no dysphagia, no nasal discharge, no neck pain, no sore throat - Breasts Breasts: as per HPI - Cardiovascular Cardiovascular ROS IM: as per HPI, chest pain, dyspnea, dyspnea on exertion, no diaphoresis, no lightheadedness, no palpitations, no syncope - Respiratory Respiratory: as per HPI, dyspnea, dyspnea on exertion, no cough, no wheezing, no excessive phlegm production - Gastrointestinal Gastrointestinal: as per HPI, nausea, no abdominal pain, no diarrhea, no hematemesis, no hematochezia, no melena, no vomiting - Genitourinary Genitourinary: no change in urinary stream, no dysuria, no flank pain, no hematuria Menstruation: as per HPI, post hysterectomy (Total) - Musculoskeletal Musculoskeletal ROS IM: no numbness, no tingling - Integumentary Integumentary IM: no rash, no unusual bruising - Neurological Neurological ROS: no confusion, no convulsions, no focal weakness, no numbness, no tingling, no tremor(s) - Psychiatric Psychiatric: as per HPI - Endocrine Endocrine IM: as per HPI - Hematologic/Lymphatic Hematologic/Lymphatic: no easy bruising - Allergic/Immunologic Allergic/Immunologic: as per HPI - Constitutional Vitals: Temp Pulse Resp BP Pulse Ox 97.7 F 58 16 171/75 99 01/19/18 12:49 01/19/18 12:49 01/19/18 12:49 01/19/18 12:49 01/19/18 12:49 General appearance: Present: cooperative, A&O X 3, pleasant, no acute distress, answers questions appropriately Exam: Pt. examined at bedside. Pt. resting comfortably in bed reports that she is chest-pain free after SL nitro. Nausea has improved as well. Denies vomiting or diaphoresis. Denies other complaints at this time. VS: 98.5F temp, HR 55, RR 16 , BP 142/62, SpO2 99% on RA. - Head Head exam: Present: atraumatic, normocephalic - Eye Eye exam: Present: PERRL, conjuntiva pink, sclera anicteric Pupils: Present: PERRL - ENT ENT exam: Present: normal exam - Neck Neck exam general surgery: Present: supple, trachea midline. Absent: lymphadenopathy - Respiratory Respiratory exam: Present: CTAB. Absent: accessory muscle use, rales, rhonchi, wheezes - Cardiovascular Cardiovascular exam: Present: RRR, +S1, +S2. Absent: diastolic murmur, gallop, rubs, systolic murmur - GI/Abdominal GI/Abdominal exam: Present: normal bowel sounds, soft, no peritoneal signs. Absent: distended, tenderness - Rectal Rectal exam: Present: deferred - Additional comments: exam deferred. - Extremities Exam Extremities exam: Present: pedal edema (Non-pitting edema in bilateral LEs), warm, radial pulses palpable and symmetrical. Absent: calf tenderness, cyanotic - Back Exam Back exam: Present: normal inspection - Neurological Exam Neurological exam: Present: alert, CN II-XII intact, oriented X3, no focal deficits. Absent: pronater drift, facial droop, speech deficit - Psychiatric Psychiatric exam: Present: normal affect, normal mood - Skin Skin exam: Present: dry, intact Internal Med - H&P Results - Labs CBC & Chem 7: 01/19/18 10:18 01/19/18 10:18 - EKG Data EKG shows normal: sinus rhythm - EKG Data Prior EKG available for review: yes EKG comments: 01/19/18 13:27 EKG dated 07/15/17 shows sinus bradycardia with LBBB. EKG dated 01/19/18 shows sinus rhythm with LBBB. - Diagnostic Studies Chest x-ray Additional comments: Impressions Chest X-Ray 01/19/18 09:45 IMPRESSION: 1. No acute abnormality. D/ / Waylon Plummer MD / Waylon Plummer MD Interpreting Provider: Waylon Plummer MD - Assessment and plan (1) Chest pain Current Visit: Yes Status: Acute Assessment and plan: Acute CP that began yesterday while the patient was sweeping outside. Patient reports pain as centralized in her chest, constant, and a combination of sharp and stabbing with pressure. Associated symptoms: Nausea, SOB, and shakiness. Pain alleviated with nitroglycerin today in the ED, otherwise no alleviating factors. Patient denies history of any stent placements. ASA. 80 mg Lipitor ONCE followed by pts. normal dosing tomorrow. SL Nitro PRN. Echocardiogram on showed LVEF of 60-65%, normal LV chamber size and wall thickness and function, mild left ventricular diastolic dysfunction, normal right ventricular structure and function, no evidence of PFO with agitated saline contrast, mild mitral regurgitation, moderate pulmonary hypertension, estimated RVSP is 47 mmHg. Compared to prior report LVEF as recovered. Limited Echocardiogram ordered. Continuous cardiac telemetry. Initial troponin <0.03. Will trend. NPO @ midnight for exercise stress test in a.m. if troponins remain WNL. Consider cardiology consult if troponins, echocardiogram, and/or stress test results abnormal. Pt. discussed w/Dr. Denson who agrees w/plan of care. Pt. is high risk for cardiac event and further morbidity d/t current CP sx that began yesterday w /exertion, hx of OR in May, hx of CHF, hx of Afib on Xarelto, hx of tobacco abuse; and risk factors of HTN, HLD, CAD. Observation. Qualifiers: Chest pain type: other chest pain Qualified Code(s): R07.89 - Other chest pain; R07.8 - Other chest pain (2) Nausea Current Visit: Yes Status: Acute Assessment and plan: Acute nausea accompanying CP sx. Denies vomiting. IVP Zofran 4 mg Q6HR PRN for N /V. (3) CHF (congestive heart failure) Current Visit: Yes Status: Chronic Assessment and plan: Hx of diastolic CHF. Echocardiogram on 06/24/17 shows LVEF of 60-65%, normal LV chamber size and wall thickness and function, mild left ventricular diastolic dysfunction, normal right ventricular structure and function, no evidence of PFO with agitated saline contrast, mild mitral regurgitation, moderate pulmonary hypertension, estimated RVSP is 47 mmHg. Compared to prior report LVEF as recovered. Limited Echocardiogram ordered. Continuous cardiac telemetry. BNP 132 on admission. Mild, non-pitting edema in bilateral LEs. Continue PO lasix and add IVP lasix if edema worsens. Qualifiers: Heart failure type: diastolic Heart failure chronicity: chronic Qualified Code(s): I50.32 - Chronic diastolic (congestive) heart failure (4) HTN (hypertension) Current Visit: Yes Status: Chronic Assessment and plan: Hx of chronic HTN. Monitor pt. and VS. continue patient's carvedilol and losartan. Add IVPB hydralazine 10 mg every 6 hour when necessary with parameters. Qualifiers: Hypertension type: essential hypertension Qualified Code(s): I10 - Essential (primary) hypertension (5) HLD (hyperlipidemia) Current Visit: Yes Status: Chronic Assessment and plan: Hx of chronic HLD. Lipid panel in a.m. labs. Continue pts. Lipitor. 80 mg Lipitor NOW d/t CP. Qualifiers: Hyperlipidemia type: pure hypercholesterolemia Qualified Code(s): E78.00 - Pure hypercholesterolemia, unspecified; E78.0 - Pure hypercholesterolemia (6) Anemia Current Visit: Yes Status: Chronic Assessment and plan: Hx of chronic iron deficiency anemia. Hgb 10.9 and Hct 34.1 on admission today, up from 7.7 and 26.2 on 11/21/17. Patient denies unusual bleeding. States she sees Dr. Browning for iron infusions w/last two in November. Folate RBC and B12 levels ordered. Will monitor H/H in f/u labs. Qualifiers: Anemia type: iron deficiency Iron deficiency anemia type: unspecified iron deficiency Qualified Code(s): D50.9 - Iron deficiency anemia, unspecified (7) Atrial fibrillation Current Visit: Yes Status: Chronic Assessment and plan: Hx of paroxysmal Afib. Continuous cardiac telemetry. Currently SR. Continue patient's Xarelto. Qualifiers: Atrial fibrillation type: paroxysmal Qualified Code(s): I48.0 - Paroxysmal atrial fibrillation (8) CAD (coronary artery disease) Current Visit: Yes Status: Chronic Assessment and plan: Hx of chronic CAD. Hx of atrial fibrillation and CHF. Echocardiogram on shows LVEF of 60-65%, normal LV chamber size and wall thickness and function , mild left ventricular diastolic dysfunction, normal right ventricular structure and function, no evidence of PFO with agitated saline contrast, mild mitral regurgitation, moderate pulmonary hypertension, estimated RVSP is 47 mmHg. Compared to prior report LVEF as recovered. Limited Echocardiogram ordered. Continuous cardiac telemetry. Continue pts. HTN and HLD medications. Qualifiers: Coronary Disease-Associated Artery/Lesion type: [place] artery [place] vs. transplanted heart: [place] heart Associated angina: with unstable angina Qualified Code(s): I25.110 - Atherosclerotic heart disease of [place] coronary artery with unstable angina pectoris (9) GERD (gastroesophageal reflux disease) Current Visit: Yes Status: Chronic Assessment and plan: Hx of chronic GERD. Continue pts. PO Prilosec. IVP Zofran 4 mg Q6HR PRN for N/ V. Qualifiers: Esophagitis presence: esophagitis presence not specified Qualified Code(s) : K21.9 - Gastro-esophageal reflux disease without esophagitis (10) Previous myocardial infarction older than 8 weeks Current Visit: Yes Status: Resolved Assessment and plan: Hx of OR in May 2017. Pt. denies stent placement. Continuous cardiac telemetry. Continue HLD and HTN medications. (11) DVT prophylaxis Current Visit: Yes Status: Acute Assessment and plan: Continue pts. Xarelto for DVT prophylaxis. Pt. taking Xarelto d/t Afib hx. Monitor pt. for signs of bleeding. (12) SOB (shortness of breath) Current Visit: Yes Status: Acute Assessment and plan: Acute SOB accompanying CP sx. Pt. denies hx of home O2 use. Supplemental O2 w/ titration and SpO2 monitoring PRN. - Time Spent With Patient Total time spent is greater than 50% in coordination of care (as documented) at patient's floor/unit and/or counseling patient: Greater than 35 minutes <Romeo Denson - Last Filed: 01/19/18 18:26> Date of Encounter: 01/19/18 Internal Medicine - H&P: HPI History of present illness: Ms. Valdez is a 72 year old female All Systems PM: A 10-system review of systems was performed and is negative for pertinent findings except as documented above in the HPI. - Constitutional Vitals: Temp Pulse Resp BP Pulse Ox 97.7 F 58 16 171/75 99 01/19/18 12:49 01/19/18 12:49 01/19/18 12:49 01/19/18 12:49 01/19/18 12:49 Internal Med - H&P Results - Labs CBC & Chem 7: 01/19/18 10:18 01/19/18 10:18 Labs: Cardiac Enzymes 01/19/18 Range/Units 16:30 Troponin I 0.08 H* (< 0.04) ng/mL - Assessment and plan (1) DVT prophylaxis Current Visit: Yes Status: Acute (2) GERD (gastroesophageal reflux disease) Current Visit: Yes Status: Chronic Qualifiers: Esophagitis presence: esophagitis presence not specified Qualified Code(s) : K21.9 - Gastro-esophageal reflux disease without esophagitis (3) CAD (coronary artery disease) Current Visit: Yes Status: Chronic Qualifiers: Coronary Disease-Associated Artery/Lesion type: [place] artery [place] vs. transplanted heart: [place] heart Associated angina: with unstable angina Qualified Code(s): I25.110 - Atherosclerotic heart disease of [place] coronary artery with unstable angina pectoris (4) Atrial fibrillation Current Visit: Yes Status: Chronic Qualifiers: Atrial fibrillation type: paroxysmal Qualified Code(s): I48.0 - Paroxysmal atrial fibrillation (5) Anemia Current Visit: Yes Status: Chronic Qualifiers: Anemia type: iron deficiency Iron deficiency anemia type: unspecified iron deficiency Qualified Code(s): D50.9 - Iron deficiency anemia, unspecified (6) Chest pain Current Visit: Yes Status: Acute Qualifiers: Chest pain type: other chest pain Qualified Code(s): R07.89 - Other chest pain; R07.8 - Other chest pain (7) Nausea Current Visit: Yes Status: Acute (8) HTN (hypertension) Current Visit: Yes Status: Chronic Qualifiers: Hypertension type: essential hypertension Qualified Code(s): I10 - Essential (primary) hypertension (9) Previous myocardial infarction older than 8 weeks Current Visit: Yes Status: Resolved (10) HLD (hyperlipidemia) Current Visit: Yes Status: Chronic Qualifiers: Hyperlipidemia type: pure hypercholesterolemia Qualified Code(s): E78.00 - Pure hypercholesterolemia, unspecified; E78.0 - Pure hypercholesterolemia (11) CHF (congestive heart failure) Current Visit: Yes Status: Chronic Qualifiers: Heart failure type: diastolic Heart failure chronicity: chronic Qualified Code(s): I50.32 - Chronic diastolic (congestive) heart failure (12) SOB (shortness of breath) Current Visit: Yes Status: Acute - Time Spent With Patient Total time spent is greater than 50% in coordination of care (as documented) at patient's floor/unit and/or counseling patient: - Attending Attestation Patient seen and examined independently of nurse practitioner. Agree with history and physical assessment and plan as above. -Patient presents with an episode of chest pain that occurred yesterday. Has significant cardiac disease. Initial troponin negative however second troponin 0.08. Allergy consultation contacted secondary to increase in troponin; recommended holding stress test until Saturday and trending troponins, patient is very received her evening Xarelto will hold off on heparin drip at this time. Gen- nad cardio- RRR no murmurs
[2018-01-19] MEDS ORDERED: Ondansetron 4 MG/2 ML VIAL IVP PRN (13:34)
[2018-01-19] MEDS: *HR* Rivaroxaban 10 MG TABLET PO SCH (17:08)
[2018-01-20 03:57] LABS: Basophils % 0.4 %; Eosinophils # 0.1 K/mcL (0.0-0.6); Eosinophils % 1.9 %; Hematocrit 36.4 % (35.3-44.9); Hemoglobin 11.7 g/dL (11.5-15.4); Immature Granulocytes % 0.2 % (0-4); Lymphocytes # 1.5 K/mcL (0.6-4.6); Lymphocytes % 28.6 %; Mean Corpuscular HGB Conc 32.1 g/dL (31.6-35.5); Mean Corpuscular Hemoglobin 26.8 pg (28.0-33.3); Mean Corpuscular Volume 83.5 fL (83.0-100.0); Mean Platelet Volume 11.4 fL (9.4-12.4); Monocytes # 0.4 K/mcL (0.0-1.3); Monocytes % 6.8 %; Neutrophils # 3.2 K/mcL (1.6-8.9); Platelet Count 173 K/mcL (140-400); Red Blood Count 4.36 M/mcL (3.82-4.97); Segmented Neutrophils % 62.1 %
[2018-01-20] MEDS: traMADol 50 MG TABLET PO PRN ×2 (04:01→20:15)
[2018-01-20 04:21] LABS: Alanine Aminotransferase 12 Units/L (7-52); Albumin 3.9 g/dL (3.5-5.7); Albumin/Globulin Ratio 1.6 (1.1-2.2); Alkaline Phosphatase 50 Units/L (34-104); Aspartate Amino Transferase 16 Units/L (13-39); BUN/Creatinine Ratio 20 (6-26); Bilirubin,Total 0.5 mg/dL (0.3-1.0); Blood Urea Nitrogen 12 mg/dL (8-23); Calcium 9.4 mg/dL (8.6-10.3); Carbon Dioxide 25 mEq/L (23-29); Chloride 106 mEq/L (98-107); Chol/HDL Ratio 2.6 (0-4.9); Cholesterol 150 mg/dL (< 200); Globulin 2.4 g/dL (2.4-3.5); Glucose 96 mg/dL (70-105); HDL Cholesterol 57 mg/dL (40-59); LDL Cholesterol,Calculated 78 mg/dL (0-99); Magnesium 2.2 mg/dL (1.6-2.6); Osmolality,Calculated 292 (280-300); Potassium 3.4 mEq/L (3.5-5.1); Sodium 141 mEq/L (136-145); Total Protein 6.3 g/dL (6.4-8.9); Triglycerides 75 mg/dL (< 150); eGFR For Non-African Americans > 60 (> 60)
[2018-01-20 05:24] LABS: Platelet Estimate Normal (Normal)
[2018-01-20 05:25] LABS: Anisocytosis 1+ (Not Present)
[2018-01-20] MEDS ORDERED: (Ubidecarenone/Vit E Acetate [Co Q-10 100 Mg Softgel]) PO SCH (09:00)
[2018-01-20] MEDS ORDERED: Losartan/HCTZ 50-12.5 TABLET PO SCH (09:00)
--- NOTE | 2018-01-20 09:42 | Internal Med Progress Note ---
Hospitalist Progress Note - Encounter Date of Encounter: 01/20/18 Time of Encounter: 09:41 - Subjective Interval History: Patient see iris examined at bedside. Deneis any CP at this time Seen by cardiology this am awaiting recommendations - Exam Vitals: Temp Pulse Resp BP Pulse Ox 97.9 F 60 16 145/68 97 01/20/18 06:43 01/20/18 06:43 01/20/18 06:43 01/20/18 06:43 01/20/18 06:43 Exam: General appearance: Present: cooperative, A&O X 3, pleasant, no acute distress, answers questions appropriately Exam: Pt. examined at bedside. Pt. resting comfortably in bed reports that she is chest-pain free after SL nitro. Nausea has improved as well. Denies vomiting or diaphoresis. Denies other complaints at this time. VS: 98.5F temp, HR 55, RR 16 , BP 142/62, SpO2 99% on RA. - Head Head exam: Present: atraumatic, normocephalic - Eye Eye exam: Present: PERRL, conjuntiva pink, sclera anicteric Pupils: Present: PERRL - ENT ENT exam: Present: normal exam - Neck Neck exam general surgery: Present: supple, trachea midline. Absent: lymphadenopathy - Respiratory Respiratory exam: Present: CTAB. Absent: accessory muscle use, rales, rhonchi, wheezes - Cardiovascular Cardiovascular exam: Present: RRR, +S1, +S2. Absent: diastolic murmur, gallop, rubs, systolic murmur - GI/Abdominal GI/Abdominal exam: Present: normal bowel sounds, soft, no peritoneal signs. Absent: distended, tenderness - Rectal Rectal exam: Present: deferred - Additional comments: exam deferred. - Extremities Exam Extremities exam: Present: pedal edema (Non-pitting edema in bilateral LEs), warm, radial pulses palpable and symmetrical. Absent: calf tenderness, cyanotic - Back Exam Back exam: Present: normal inspection - Neurological Exam Neurological exam: Present: alert, CN II-XII intact, oriented X3, no focal deficits. Absent: pronater drift, facial droop, speech deficit - Psychiatric Psychiatric exam: Present: normal affect, normal mood - Skin Skin exam: Present: dry, intact - Assessment and Plan (1) DVT prophylaxis Current Visit: Yes Status: Acute Assessment and Plan: Continue pts. Xarelto for DVT prophylaxis. Pt. taking Xarelto d/t Afib hx. Monitor pt. for signs of bleeding. (2) GERD (gastroesophageal reflux disease) Current Visit: Yes Status: Chronic Assessment and Plan: Hx of chronic GERD. Continue pts. PO Prilosec. IVP Zofran 4 mg Q6HR PRN for N/ V. (3) CAD (coronary artery disease) Current Visit: Yes Status: Chronic Assessment and Plan: History of chronic CAD A. fib and CHF echo 06/24/17 shows LVEF of 6065% with normal LV chamber size and wall thickness function mild left ventricular diastolic dysfunction and normal right ventricular structure and function no evidence of PFO mild mitral regurgitation and moderate pulmonary hypertension Left heart catheter for non-STEMI 05/2017 revealed EF 35%- 40% mLAD stenosis hazy 60-70 percent stenosis rdistal LAD 40% stenosis mid RCA -echo completed 06/24 showed EF of 6065% with normal LV chamber size and wall thickness and function mild left ventricular diastolic dysfunction and normal right ventricular structure and function no evidence of PFO cardiology recommending medical management Limited echo ordered Continue his cardiac telemetry Imdur added per cardiology anterior aspirin statin and beta grant (4) Atrial fibrillation Current Visit: Yes Status: Chronic Assessment and Plan: Hx of paroxysmal Afib. Continuous cardiac telemetry. Currently SR. Continue patient's Xarelto and beta grant. (5) Anemia Current Visit: Yes Status: Chronic Assessment and Plan: 11 stable at this time continue with iron infusions with outpatient oncology (6) Chest pain Current Visit: Yes Status: Acute Assessment and Plan: Cardiology has been consulted awaiting Limited echo Troponins have been elevated no chest pain this time (7) Nausea Current Visit: Yes Status: Acute Assessment and Plan: Acute nausea accompanying CP sx. Denies vomiting. IVP Zofran 4 mg Q6HR PRN for N /V. (8) HTN (hypertension) Current Visit: Yes Status: Chronic Assessment and Plan: Hx of chronic HTN. Needs better blood pressure control, continue patient's carvedilol and losartan. Imdur added per cardiology IVPB hydralazine 10 mg every 6 hour when necessary with parameters. (9) Previous myocardial infarction older than 8 weeks Current Visit: Yes Status: Resolved Assessment and Plan: History of moderate nonobstructive CAD underwent left heart catheter for non- STEMI 05/2017stent placement Continue with aspirin and beta grant and/or added per cardiology for blood pressure control (10) HLD (hyperlipidemia) Current Visit: Yes Status: Chronic Assessment and Plan: Hx of chronic HLD. Lipid panel in a.m. labs. Continue pts. Lipitor. 80 mg Lipitor NOW d/t CP. (11) CHF (congestive heart failure) Current Visit: Yes Status: Chronic Assessment and Plan: Hx of diastolic CHF. Echocardiogram on 06/24/17 shows LVEF of 60-65%, normal LV chamber size and wall thickness and function, mild left ventricular diastolic dysfunction, normal right ventricular structure and function, no evidence of PFO with agitated saline contrast, mild mitral regurgitation, moderate pulmonary hypertension, estimated RVSP is 47 mmHg. Limited echo has been ordered continue with Lasix beta grant and ARB (12) SOB (shortness of breath) Current Visit: Yes Status: Acute Assessment and Plan: We will check limited echo Continue with oxygen maintaining SPO2 greater than 90%-does not require oxygen use at home - Time Spent with Patient Total time spent is greater than 50% in coordination of care (as documented) at patient's floor/unit and/or counseling patient: Internal Medicine: Result - Labs CBC & Chem 7: 01/20/18 03:31 01/20/18 03:31 Labs: Short CBC 01/20/18 Range/Units 03:31 WBC 5.2 (4.3-11.1) K/mcL Hgb 11.7 (11.5-15.4) g/dL Hct 36.4 (35.3-44.9) % Plt Count 173 (140-400) K/mcL Neutrophils # 3.2 (1.6-8.9) K/mcL BMP 01/20/18 03:31 Sodium 141 Potassium 3.4 L Chloride 106 Carbon Dioxide 25 BUN 12 Creatinine 0.61 Glucose 96 Calcium 9.4 Cardiac Enzymes 01/19/18 01/19/18 01/20/18 Range/Units 16:30 21:30 03:31 Troponin I 0.08 H* 0.10 H* 0.08 H* (< 0.04) ng/mL Liver Function 01/20/18 Range/Units 03:31 Total Bilirubin 0.5 (0.3-1.0) mg/dL AST 16 (13-39) Units/L ALT 12 (7-52) Units/L Alkaline Phosphatase 50 (34-104) Units/L Albumin 3.9 (3.5-5.7) g/dL Consult Discharge Plan - Plan Referrals: Lorene Barahona MD [Primary Care Provider] - (2) GERD (gastroesophageal reflux disease) Qualifiers: Esophagitis presence: esophagitis presence not specified Qualified Code(s): K21.9 - Gastro-esophageal reflux disease without esophagitis (3) CAD (coronary artery disease) Qualifiers: Coronary Disease-Associated Artery/Lesion type: [place] artery [place] vs. transplanted heart: [place] heart Associated angina: with unstable angina Qualified Code(s): I25.110 - Atherosclerotic heart disease of [place] coronary artery with unstable angina pectoris (4) Atrial fibrillation Qualifiers: Atrial fibrillation type: paroxysmal Qualified Code(s): I48.0 - Paroxysmal atrial fibrillation (5) Anemia Qualifiers: Anemia type: iron deficiency Iron deficiency anemia type: unspecified iron deficiency Qualified Code(s): D50.9 - Iron deficiency anemia, unspecified (6) Chest pain Qualifiers: Chest pain type: other chest pain Qualified Code(s): R07.89 - Other chest pain; R07.8 - Other chest pain (8) HTN (hypertension) Qualifiers: Hypertension type: essential hypertension Qualified Code(s): I10 - Essential (primary) hypertension (10) HLD (hyperlipidemia) Qualifiers: Hyperlipidemia type: pure hypercholesterolemia Qualified Code(s): E78.00 - Pure hypercholesterolemia, unspecified; E78.0 - Pure hypercholesterolemia (11) CHF (congestive heart failure) Qualifiers: Heart failure type: diastolic Heart failure chronicity: chronic Qualified Code(s): I50.32 - Chronic diastolic (congestive) heart failure
[2018-01-20] MEDS: Aspirin 81 MG TAB.CHEW PO SCH (09:45)
[2018-01-20] MEDS: Furosemide 20 MG TABLET PO SCH (09:47)
--- NOTE | 2018-01-20 10:15 | Cardiology Consult Note ---
Date of Encounter: 01/20/18 Time of Encounter: 09:00 Assessment and Plan (1) Elevated troponin Current Visit: Yes Status: Acute Mild troponin elevation in the setting of atypical chest pain and uncontrolled HTN. Noted chronic troponin elevation. Known moderate non-obstructive CAD, EF 45% on last LHC 05/2017. Medical management recommended. Recommend better blood pressure control. Add imdur. Check TTE. Continue asa, statin, and bb. (2) Chest pain Current Visit: Yes Status: Acute See above. Atypical chest pain. May have GI component. Qualifiers: Chest pain type: other chest pain Qualified Code(s): R07.89 - Other chest pain; R07.8 - Other chest pain (3) Essential hypertension Current Visit: No Status: Acute Uncontrolled HTN. Increase hyzaar to 2 tablets daily. Low sodium diet. (4) CAD (coronary artery disease) Current Visit: Yes Status: Chronic H/o Moderate non-obstructive CAD. SHe underwent LHC for NSTEMI 05/2017. LHC at that time revealed EF 45%, 40% mLAD stenosis, hazy 60-70% stenosis dLAD, 40% stenosis mRCA. Medical management recommended. LHC films reviewed by Dr. Mujica. Recommends continued medical management. Asa, statin, and bb. Add imdur. Better blood pressure control. Qualifiers: Coronary Disease-Associated Artery/Lesion type: [place] artery [place] vs. transplanted heart: [place] heart Associated angina: with unstable angina Qualified Code(s): I25.110 - Atherosclerotic heart disease of [place] coronary artery with unstable angina pectoris (5) Atrial fibrillation Current Visit: Yes Status: Chronic H/o PAF on xarelto. Currently NSR. One small run afib seen. AVg HR 56 bpm. Continue carvedilol. Qualifiers: Atrial fibrillation type: paroxysmal Qualified Code(s): I48.0 - Paroxysmal atrial fibrillation (6) Cardiomyopathy Current Visit: No Status: Chronic H/o CMP. EF 35% on TTE 05/2017 and 45% on LHC. TTE pending. Currently euvolemic. Continue bb and arb. Qualifiers: Cardiomyopathy type: unspecified Qualified Code(s): I42.9 - Cardiomyopathy , unspecified Discussion w patient/family: The assessment and plan as outlined above was discussed with the patient and/or family members who expressed understanding and agreement. All questions were answered. Thank you for involving us in the care of your patient. Please call with any questions. History of Present Illness Consult date: 01/20/18 Requesting physician: Romeo Denson Consult reason: Chest pain Chief complaint: Chest pain and nausea History of present illness: Ms. Valdez is a 72 year old female with past medical history of moderate non- obstructive CAD on LHC, CMP with EF 35%, afib on xarelto, HTN, HLD, and GERD who presents with c/o midsternal chest discomfort. C/o soreness in her chest with movement and palpation. Also c/o increased indigestion feeling. She was cleaning up yard clippings with a rake and bending over when they started. She was upset about her neighbor not cleaning up his yard clippings. She took 4 baby asa and Maalox for her symptoms with no relief. She notes her blood pressure running as high as 200 systolic at home. She did have recurrent pain and nausea last relieved with antihypertensive medication and antiemetic. Past Med Surg Social Fam HX - Past Medical History Medical history: cancer (basal cell carcinoma), cardiomyopathy, coronary artery disease, GERD (gastritis), hypertension, myocardial infarction, other (Rosacea) Psychiatric history: no psych history - Past Surgical History Surgical History: hysterectomy, other (EGD- 05/21/2013, EGD with dilation- , Colonoscopy- 07/02/17) Additional surgical history: egd/colon, heart cath - Social History Smoking Status: Former smoker Packs per day: 1-2 PPD - Reports quitting in 1971 Smokeless Tobacco Status: No Alcohol use: none Drug use: none - Family History Mother Race: Family Member Ethnicity: Non- Living Status: Age at : 71 Cause of : MT Hx Family Cardiac Disorders: Yes (MT) Hx Family Endocrine Disorder: Yes (DM) Hx Family Neuromuscular Disorders: Yes (Parkinson's disease) Father Race: Family Member Ethnicity: Non- Living Status: Age at : 72 Cause of : Lung cancer Hx Family Cancer: Yes (Lung) Sister Race: Family Member Ethnicity: Non- Living Status: Age at : 33 Cause of : following open heart surgery Hx Family Cardiac Disorders: Yes (Heart disease) Brother History Unknown: Yes Race: Family Member Ethnicity: Non- Living Status: Still Living Medications and Allergies Aspirin 81 mg PO DAILY 06/04/17 [History] Atorvastatin [Lipitor] 40 mg PO 0900 06/04/17 [History] Carvedilol 12.5 mg PO BID 06/04/17 [History] Losartan/Hydrochlorothiazide [Losartan-Hctz 50-12.5 mg Tab] 1 each PO DAILY [History] Omeprazole [PriLOSEC] 40 mg PO BID 06/04/17 [History] Ubidecarenone/Vit E Acetate [Co Q-10 100 mg Softgel] 1 each PO DAILY 06/04/17 [ History] Furosemide [Lasix] 20 mg PO DAILY #30 tablet 06/08/17 [Rx] Rivaroxaban [Xarelto] 20 mg PO DAILY@1700 #30 tablet 06/08/17 [Rx] Potassium Chloride [Klor-Con 10] 20 meq PO DAILY 11/26/17 [History] 3 Allergy/AdvReac Type Severity Reaction Status Date / Time Corticosteroids Allergy Nausea Verified 06/03/17 21:04 (Glucocorticoids) famotidine [From Pepcid] Allergy Nausea Verified 06/03/17 21:04 All Systems Review: The remainder of the systems were reviewed and are negative Physical Examination Vital Signs, Last 4 Hours Temp Pulse Resp BP Pulse Ox 01/20/18 06:43 97.9 F 60 16 145/68 97 General: Conversant, No Apparent Distress HEENT: Atraumatic, Normocephaly, Mucus Membranes Moist Neck: No JVD, Normal carotid pulses Cardiac: Reg Rate and Rhythm, Normal S1 and S2, No Murmur Lungs: Normal Breath Sounds, No Wheeze, Rales, Rhonchi Neuro: Alert and responsive, No focal deficits noted Abdomen: Soft, Non-Tender Skin: No rashes noted on visualized skin Musculoskeletal: Other (Reproducible mid-epigastric tenderness) Extremities: No Clubbing, No Cyanosis, No Edema, Normal Pulses Results 01/20/18 03:31 01/20/18 03:31 Lab Results 01/19/18 01/19/18 01/20/18 16:30 21:30 03:31 WBC 5.2 Hgb 11.7 Hct 36.4 Plt Count 173 Sodium Potassium Chloride Carbon Dioxide BUN Creatinine Glucose Calcium Magnesium Total Bilirubin AST ALT Alkaline Phosphatase Troponin I 0.08 H* 0.10 H* 01/20/18 01/20/18 01/20/18 03:31 03:31 09:15 WBC Hgb Hct Plt Count Sodium 141 Potassium 3.4 L Chloride 106 Carbon Dioxide 25 BUN 12 Creatinine 0.61 Glucose 96 Calcium 9.4 Magnesium 2.2 Total Bilirubin 0.5 AST 16 ALT 12 Alkaline Phosphatase 50 Troponin I 0.08 H* 0.08 H* - Imaging and Cardiology Cardiac cath: report reviewed - EKG Interpretation EKG results cardiology: personally reviewed Consult Discharge Plan - Plan Referrals: Lorene Barahona MD [Primary Care Provider] -
[2018-01-20] MEDS ORDERED: Losartan/HCTZ 50-12.5 TABLET PO ONE ×2 (10:30→12:00)
[2018-01-20 10:34] LABS: Estimated Average Glucose 97 mg/dl
--- NOTE | 2018-01-20 15:45 | Electrocardiograph Report ---
[place] [id number] Test Date: 2018-01-19 Pat Name: Shena Valdez Department: EXAM2 Room: 3B Gender: F Director Game: : 1945 Requested By: [id number] Order Number: [id number] Reading MD: Gen Lacy Measurements Intervals [place] Rate: 68 P: 64 OR: 166 QRS: 27 QRSD: 126 T: 59 QT: 418 QTc: 445 Interpretive Statements Sinus rhythm Possible left atrial enlargement Left bundle branch block Electronically Signed On 01-20-2018 15:44:07 EDT by Gen Lacy
[2018-01-20] MEDS: Isosorbide MONOnitrate (24 HR) 30 MG TAB.ER.24H PO SCH (15:55)
[2018-01-20] MEDS: *HR* Rivaroxaban 10 MG TABLET PO SCH (17:29)
[2018-01-21 05:50] LABS: Basophils % 0.5 %; Eosinophils # 0.1 K/mcL (0.0-0.6); Eosinophils % 1.1 %; Hematocrit 35.9 % (35.3-44.9); Hemoglobin 11.5 g/dL (11.5-15.4); Immature Granulocytes % 0.4 % (0-4); Immature Platelets 7.6 % (1.1-6.1); Lymphocytes # 2.1 K/mcL (0.6-4.6); Lymphocytes % 37.6 %; Mean Corpuscular Hemoglobin 27.1 pg (28.0-33.3); Mean Corpuscular Volume 84.7 fL (83.0-100.0); Mean Platelet Volume 11.2 fL (9.4-12.4); Monocytes # 0.5 K/mcL (0.0-1.3); Monocytes % 8.1 %; Platelet Count 171 K/mcL (140-400); Red Blood Count 4.24 M/mcL (3.82-4.97); Segmented Neutrophils % 52.3 %
[2018-01-21 06:02] LABS: Alanine Aminotransferase 10 Units/L (7-52); Albumin 4.1 g/dL (3.5-5.7); Albumin/Globulin Ratio 1.6 (1.1-2.2); Alkaline Phosphatase 52 Units/L (34-104); Aspartate Amino Transferase 13 Units/L (13-39); BUN/Creatinine Ratio 24 (6-26); Bilirubin,Total 0.4 mg/dL (0.3-1.0); Blood Urea Nitrogen 22 mg/dL (8-23); Calcium 9.6 mg/dL (8.6-10.3); Carbon Dioxide 26 mEq/L (23-29); Chloride 102 mEq/L (98-107); Globulin 2.5 g/dL (2.4-3.5); Glucose 110 mg/dL (70-105); Osmolality,Calculated 292 (280-300); Potassium 3.7 mEq/L (3.5-5.1); Sodium 139 mEq/L (136-145); Total Protein 6.6 g/dL (6.4-8.9); eGFR For Non-African Americans 59 (> 60)
[2018-01-21 06:08] LABS: Anisocytosis 1+ (Not Present); Hypochromasia Present (Not Present); Microcytosis Present (Not Present); Poikilocytosis 1+ (Not Present)
[2018-01-21 06:09] LABS: Platelet Estimate Normal (Normal)
[2018-01-21] MEDS: Furosemide 20 MG TABLET PO SCH (08:14)
[2018-01-21] MEDS: Aspirin 81 MG TAB.CHEW PO SCH (08:14)
[2018-01-21] MEDS: Isosorbide MONOnitrate (24 HR) 30 MG TAB.ER.24H PO SCH (08:14)
[2018-01-21] MEDS ORDERED: Losartan/HCTZ 50-12.5 TABLET PO SCH ×2 (09:00→13:26)
--- NOTE | 2018-01-21 10:26 | Event Note ---
Date of Encounter: 01/21/18 Time of Encounter: 09:00 - Cardiology Event Note TTE completed shows reduced EF at 45% with new WMA. H/o CMP with EF 35% 05/2017. Repeat TTE 06/2017 showed resolved CMP with EF 65%. Changes on new TTE reviewed with Ms. Valdez. [facility] recommended to r/o ischemic cause of reduced EF with WMA. [facility] R/B/A reviewed and she agrees to proceed. I discussed full code status requirement for 24 kathy-procedure and she agrees to be full code for 24 hours. She is currently pain free. B/P improved.
--- NOTE | 2018-01-21 12:57 | Internal Med Progress Note ---
Hospitalist Progress Note - Encounter Date of Encounter: 01/21/18 Time of Encounter: 12:54 - Subjective Interval History: No acute changes overnight. Denies chest pain at this time. - Exam Vitals: Temp Pulse Resp BP Pulse Ox 98.5 F 62 16 93/56 91 01/21/18 11:21 01/21/18 11:21 01/21/18 11:21 01/21/18 11:21 01/21/18 11:21 Exam: PHYSICAL EXAMINATION: GENERAL: The patient is an elderly female who is in no apparent distress, alert and oriented 3 HEENT: Head is normocephalic and atraumatic. Extraocular muscles are intact. Pupils are equal, round, and reactive to light and accommodation. NECK: Supple. No carotid bruits. No lymphadenopathy or thyromegaly. LUNGS: Clear to auscultation B/L AP & L. HEART: Regular rate and rhythm, S1, S2 without murmur. ABDOMEN: Soft, nontender, and nondistended. Positive bowel sounds. No hepatosplenomegaly was noted. EXTREMITIES: Without any cyanosis, clubbing, rash, lesions or edema. NEUROLOGIC: Cranial nerves II through XII are grossly intact. SKIN: No ulceration or induration present. - Assessment and Plan (1) Chest pain Current Visit: Yes Status: Acute Assessment and Plan: History of CAD including, CHF, A. fib High risk for cardiac event Troponin elevations with peak of 0.10, trending down TTE with changes compared to prior 2018 study;06/24/17 shows LVEF of 60-65%, normal LV chamber size and wall thickness and function, mild left ventricular diastolic dysfunction, normal right ventricular structure and function, no evidence of PFO with agitated saline contrast, mild mitral regurgitation, moderate pulmonary hypertension, estimated RVSP is 47 mmHg. 01/20/18- LVEF 45%. Normal LV chamber size. Mild segmental left ventricular systolic dysfunction. Since the prior echocardiogram, new segmental wall motion abnormalities have developed Cardiology following consultation plan for left heart catheter this afternoon (2) GERD (gastroesophageal reflux disease) Current Visit: Yes Status: Chronic (3) CAD (coronary artery disease) Current Visit: Yes Status: Chronic Assessment and Plan: History of chronic CAD A. fib and CHF echo 06/24/17 shows LVEF of 6065% with normal LV chamber size and wall thickness function mild left ventricular diastolic dysfunction and normal right ventricular structure and function no evidence of PFO mild mitral regurgitation and moderate pulmonary hypertension Repeat 02/06 with decreased EF; concerns for ischemia Paper Stacker in consultation plan for LHC this afternoon Has had recent Left heart catheter for non-STEMI 05/2017 revealed EF 35%- 40% mLAD stenosis hazy 60-70 percent stenosis rdistal LAD 40% stenosis mid RCA - Continue his cardiac telemetry Imdur added per cardiology Continue aspirin statin and beta grant (4) Atrial fibrillation Current Visit: Yes Status: Chronic Assessment and Plan: Continue telemetry, continue Xarelto. (5) Anemia Current Visit: Yes Status: Chronic Assessment and Plan: Chronic, H&H stable, no signs or symptoms of bleeding. Continue to monitor (6) Nausea Current Visit: Yes Status: Resolved (7) HTN (hypertension) Current Visit: Yes Status: Chronic Assessment and Plan: Prior history BP borderline though this morning 93/56 Decrease ARB/HCTZ dose and monitor (8) Previous myocardial infarction older than 8 weeks Current Visit: Yes Status: Resolved Assessment and Plan: History of moderate nonobstructive CAD underwent left heart catheter for non- STEMI 05/2017stent placement Continue with aspirin and beta grant and/or added per cardiology for blood pressure control 01/21- to undergo LHC this afternoon 05/24 changes to TTE and chest pain. concerns for ischemia (9) HLD (hyperlipidemia) Current Visit: Yes Status: Chronic Assessment and Plan: continue lipitor (10) CHF (congestive heart failure) Current Visit: Yes Status: Chronic Assessment and Plan: TTE--EF at 45% with new WMA. Hx of diastolic CHF. Echocardiogram on 06/24/17 shows LVEF of 60-65%, normal LV chamber size and wall thickness and function, mild left ventricular diastolic dysfunction, normal right ventricular structure and function, no evidence of PFO with agitated saline contrast, mild mitral regurgitation, moderate pulmonary hypertension, estimated RVSP is 47 mmHg. Given change in TTE patient ot undergo a LHC this afternoon (11) SOB (shortness of breath) Current Visit: Yes Status: Acute Assessment and Plan: Shortness of breath persists, however, patient resting calmly on room air and able to relate around the room without difficulty. Denies any chest pain (12) DVT prophylaxis Current Visit: Yes Status: Acute Assessment and Plan: Continue Xarelto for DVT prophylaxis. Pt. taking Xarelto d/t Afib hx. Monitor pt. for signs of bleeding - Time Spent with Patient Total time spent is greater than 50% in coordination of care (as documented) at patient's floor/unit and/or counseling patient: less than 15 minutes Plan of Care Discussed with: patient Internal Medicine: Result - Labs CBC & Chem 7: 01/21/18 04:48 01/21/18 04:48 Labs: Short CBC 01/21/18 Range/Units 04:48 WBC 5.7 (4.3-11.1) K/mcL Hgb 11.5 (11.5-15.4) g/dL Hct 35.9 (35.3-44.9) % Plt Count 171 (140-400) K/mcL Neutrophils # 3.0 (1.6-8.9) K/mcL BMP 01/21/18 04:48 Sodium 139 Potassium 3.7 Chloride 102 Carbon Dioxide 26 BUN 22 Creatinine 0.93 Glucose 110 H Calcium 9.6 Liver Function 01/21/18 Range/Units 04:48 Total Bilirubin 0.4 (0.3-1.0) mg/dL AST 13 (13-39) Units/L ALT 10 (7-52) Units/L Alkaline Phosphatase 52 (34-104) Units/L Albumin 4.1 (3.5-5.7) g/dL Consult Discharge Plan - Plan Referrals: Lorene Barahona MD [Primary Care Provider] - (Requested a follow up appointment in 7-10 days. ) (1) Chest pain Qualifiers: Chest pain type: other chest pain Qualified Code(s): R07.89 - Other chest pain; R07.8 - Other chest pain (2) GERD (gastroesophageal reflux disease) Qualifiers: Esophagitis presence: esophagitis presence not specified Qualified Code(s): K21.9 - Gastro-esophageal reflux disease without esophagitis (3) CAD (coronary artery disease) Qualifiers: Coronary Disease-Associated Artery/Lesion type: [place] artery [place] vs. transplanted heart: [place] heart Associated angina: with unstable angina Qualified Code(s): I25.110 - Atherosclerotic heart disease of [place] coronary artery with unstable angina pectoris (4) Atrial fibrillation Qualifiers: Atrial fibrillation type: paroxysmal Qualified Code(s): I48.0 - Paroxysmal atrial fibrillation (5) Anemia Qualifiers: Anemia type: iron deficiency Iron deficiency anemia type: unspecified iron deficiency Qualified Code(s): D50.9 - Iron deficiency anemia, unspecified (7) HTN (hypertension) Qualifiers: Hypertension type: essential hypertension Qualified Code(s): I10 - Essential (primary) hypertension (9) HLD (hyperlipidemia) Qualifiers: Hyperlipidemia type: pure hypercholesterolemia Qualified Code(s): E78.00 - Pure hypercholesterolemia, unspecified; E78.0 - Pure hypercholesterolemia (10) CHF (congestive heart failure) Qualifiers: Heart failure type: diastolic Heart failure chronicity: chronic Qualified Code(s): I50.32 - Chronic diastolic (congestive) heart failure
[2018-01-21] MEDS ORDERED: Nitroglycerin 1,000 MCG/10 ML VIAL IV ONE (13:19)
[2018-01-21] MEDS ORDERED: Heparin 1,000 UNITS/500 mL 500 ML ONE (13:19)
[2018-01-21] MEDS ORDERED: *HR* Heparin 10,000 UNIT/10 ML VIAL ONE (13:19)
[2018-01-21] MEDS ORDERED: 0.9 % Sodium Chloride 1,000 ML ONE ×2 (13:19→13:31)
[2018-01-21] MEDS ORDERED: ISOVUE-370 200 ML INFUS..BTL IV ONE (13:19)
--- NOTE | 2018-01-21 13:20 | Pre-Sedation Evaluation ---
Pre-sedation evaluation - Pre-sedation checklist Date of procedure: 01/21/18 Procedure: [facility] Recent Vitals: Last Vital Signs Temp 98.5 F 01/21/18 11:21 Pulse 62 01/21/18 11:21 Resp 16 01/21/18 11:21 BP 93/56 01/21/18 11:21 Pulse Ox 91 01/21/18 11:21 H&P (including ROS) documented in medical record: Yes Previous reaction to sedatives/anesthetics: No Dietary Status: NPO after Midnight Airway Assessment: Patient can open mouth completely, TMJ function normal, Micrognathia (under-bite, receding chin) absent, Neck with adequate range of motion Dentition: dentures removed Possible difficult airway: No ASA Classification *see protocol: CLASS II-Mild systemic disease Plan of Care: Pt appropriate candidate for procedure/moderate/conscious sedation , Risks/benefits of procedure/sedation discussed w/ patient/family Cardiac Registry (Cardio Only) - Functional Capacity Functional Capacity: >=4 METS with symptoms - Clincal Frailty Scale Clinical Frailty Scale: Vulnerable
[2018-01-21] MEDS ORDERED: *HR* Midazolam HCl 2 MG/2 ML VIAL ONE (13:31)
[2018-01-21] MEDS ORDERED: *HR* FentaNYL (PF) 100 MCG/2 ML VIAL ONE (13:31)
--- NOTE | 2018-01-21 14:12 | Event Note ---
Date of Encounter: 01/21/18 Time of Encounter: 14:10 - Cardiology Event Note No change on LHC. Stable CAD. EF normal by LV gram. Continue medical management and outpt f/u with cardiology. Call with questions.
--- NOTE | 2018-01-21 14:26 | Invasive Diagnostic Lab Proc ---
Name: Shena Valdez Date of Study: 01/21/2018 Date: 1945 Ht: 66.0in Medical Record#: [id number] Age: 72 Wt: 156.31lb Gender: Female BSA: 1.8 Order #: [id number] BMI: 25.24 Physicians Procedure Physician: Lorene Sexton MD, [facility] Referring MD: Referring MD: Staff Name Position Time In AdrianSilviano rico RN Monitor 01:32 PM Etta Ludwig RN Employee Wellness/Fitness Coordinator 01:32 PM Ariadna Herrera RT (R) Scrub 01:32 PM Taryn Meza RT (R) RT(R) 01:33 PM Indications Indication Non-Stemi Procedures Performed Procedure L HRT ARTERY/VENTRICLE ANGIO Pre-Procedure Checklist Informed consent is complete signed and on chart. H&P is on chart. ID band is on and ID verified with patient. Patient NPO for procedure The procedure was described for the patient and questions were answered. Blood Pressure: 129/68 ECG is on chart. Rhythm: Sinus Bradycardia Plan of Care Patient will tolerate the procedure without complications. Adequate level of comfort will be maintained. Hemodynamics will remain stable Patient will recover from procedure without complications. Respiratory function will be maintained. Cardiac rhythm will remain stable. Patient temperature will be maintained. Patient and/or family have verbalized understanding of the procedure. Patient Education Chief Complaint/Reason for Test: Cardiac Cath Developmental Category: Geriatric (65+ years) Developmentally Appropriate for Age: Yes Learning Barriers: None Education Needs: Procedure Education Method: Verbal Information Taught: Cardiac Cath Educational Evaluation: Able to repeat information Intravenous Access Time IV Size Location DC'd Fluid/Drip Rate Units RN 20g 1 /" Patent On Arrival Lt Antecubital 0.9NaCl Etta Ludwig RN Allergies Corticosteroids (Glucocorticoids) famotidine Vital Signs Time BP (mmHg) HR (bpm) O2 Sat. RR (bpm) LOC 01:33 PM / % 5 = Fully awake and oriented or at pre-proc level 01:33 PM / % 4 = Oriented but drowsy 01:48 PM / % 4 = Oriented but drowsy 01:36 PM 153 / 77 66 98 % 19 01:41 PM 116 / 60 62 98 % 17 01:46 PM 101 / 59 61 97 % 19 01:51 PM 107 / 55 58 96 % 15 01:56 PM 113 / 56 57 97 % 17 02:01 PM 111 / 57 56 93 % 15 Procedural Medications Time Medication Dose Units Method Given By 01:33 PM Oxygen 2 L/min nasal cannula Etta Ludwig RN 01:43 PM Versed 1 mg Intravenous Etta Ludwig RN 01:43 PM Fentanyl 25 mcg Intravenous Etta Ludwig RN 01:36 PM Versed 1 mg Intravenous Etta Ludwig RN 01:36 PM Fentanyl 25 mcg Intravenous Etta Ludwig RN 01:45 PM Lidocaine 2% 16 ml Subcutaneous Lorene Sexton MD, [facility] ASA Classification: CLASS II- Mild systemic disease (i.e. well-controlled diabetes, hypertension, asthma, cigarette smoking) Ari Score Preprocedure Postprocedure Activity 2- Moves 4 extremities sustained head lift Activity 2- Moves 4 extremities sustained head lift Circulation 2- SBP +/= 20 points of pre-anesthetic level Circulation 2- SBP +/= 20 points of pre-anesthetic level Consciousness 2- Awake and alert oriented x 3 Consciousness 2- Awake and alert oriented x 3 O2 Saturation 2- Able to maintain O2 satruation of 92% on room air O2 Saturation 2- Able to maintain O2 satruation of 92% on room air Respiratory 2- Able to deep breathe and cough well Respiratory 2- Able to deep breathe and cough well Total Score 10 Total Score 10 Contrast Agent: Isovue Diagnostic Contrast: 66 ml Total Contrast: 66 ml Fluoro Dose: 1705 mGy Procedure Log Time Note Enter By 01:32 PM CathStat 01:32 PM Pt arrived to trestle mainternance laborer 2 at 13:32 larisa 01:32 PM Silviano Campbell RN Position: Monitor Time in: 13:32 larisa 01:32 PM Etta Ludwig RN Position: Employee Wellness/Fitness Coordinator Time in: 13:32 larisa 01:32 PM Ariadna Herrear RT (R) Position: Scrub Time in: 13:32 larisa 01:33 PM Taryn Meza RT (R) Position: RT(R) Time in: 13:33 larisa 01:33 PM Patient charges- Angio tray pack, Navilyst 3mm J, Pulse Oximetry and ACIST tubing and transducer [facility] 01:33 PM Hair removed from procedure site in procedure lab using clippers. Bilateral groin prepped with Chloraprep by Taryn Meza (R), then patient was draped. Skin intact. PM Physician arrived : [facility] PM ASA Class CLASS II- Mild systemic disease (i.e. well-controlled diabetes, hypertension, asthma, cigarette smoking) [facility] PM Meet and mattie completed [facility] PM Sign in performed according to hospital policy. Informed consent was obtained. PM Procedure start :[facility] PM Time: : Oxygen on at 2 L/min per nasal cannula by Etta Ludwig RN [facility] PM Time: :33 Patient comfortable and pain free: Yes PM Time: :33LOC: 5 = Fully awake and oriented or at pre-proc level jc:34 PM Clinical Presentation: Non-STEMI :35 PM Vitals capture started with the following parameters, Patient=Adult, Interval=5 min, Initial Tsuainhb=279 mmHg, Deflation Rate=5 mmHg, Cuff placed on Right Arm 01:36 PM Time: 13:36 Versed 1 mg Intravenous Given by Etta Ludwig RN :36 PM Time: 13:36 Fentanyl 25 mcg Intravenous Given by Etta Ludwig RN :36 PM HR=66 bpm, GNQM=462/77 mmhg, SpO2=98.0 %, Resp=19 B/min, Comment=nsr 01:41 PM HR=62 bpm, XFIJ=675/60 mmhg, SpO2=98.0 %, Resp=17 B/min, Comment=nsr :43 PM Time: :43 Versed 1 mg Intravenous Given by Etta Ludwig RN :44 PM Time: : Fentanyl 25 mcg Intravenous Given by Etta Ludwig RN :45 PM Time out was performed according to hospital policy. Conscious sedation and anesthesia was achieved (see medication log with in this report above) [facility] :46 PM HR=61 bpm, LXFA=539/59 mmhg, SpO2=97.0 %, Resp=19 B/min, Comment=nsr 01:46 PM Time: 13:45 16 ml Lidocaine 2% to right groin Subcutaneous Given by Lorene Sexton MD, [facility] jcallihan 01:47 PM Access obtained by percutaneous puncture. 5Fr 10cm Terumo Stafford sheath placed in right Femoral artery. [id number] jcallihan 01:48 PM 5Fr FR 4 catheter inserted over the wire DN jcallihan 01:48 PM RCA angiography performed in multiple views. [email or web address] 01:48 PM Time: 13:33LOC: 4 = Oriented but drowsy jcallihan 01:49 PM Time: 13:33 Patient comfortable and pain free: Yes [email or web address] 01:49 PM Recorded Pressure: Ao, HR=65, Condition=Condition 1 (Aorta) Ao 76/43/58 01:50 PM Catheter removed [email or web address] 01:50 PM Coronary Dominance: right jcallihan 01:50 PM 5Fr FL 4 catheter inserted over the wire DN jcallihan 01:50 PM LCA angiography performed in multiple views. [email or web address] 01:51 PM HR=58 bpm, PBAP=152/55 mmhg, SpO2=96.0 %, Resp=15 B/min 01:52 PM Pressure channel 1 zero failed. 01:52 PM Pressure channel 1 zeroed. 01:53 PM Recorded Pressure: LV, HR=58, Condition=Condition 1 (Left Ventricle) LV 98/-6/2 01:53 PM Catheter removed jcallihan 01:53 PM 5Fr Pigtail catheter inserted over the wire DN jcallihan 01:53 PM Recorded Pressure: LV, Ao, HR=62, Condition=Condition 1 (Left Ventricle) LV 82/2/3, (Aorta) Ao 74/36/54 01:54 PM Catheter crossed the aortic valve and was selectively placed in the left ventricle. Pressures recorded on pullback for left heart catheterization. jcallihan 01:54 PM Bolus angiogram of left Ventricle complete: 8 ml/sec for a total of 24 mls jcallihan 01:54 PM Catheter removed jcallihan 01:54 PM Recorded Pressure: Ao, HR=61, Condition=Condition 1 (Aorta) Ao 107/36/59 01:55 PM Bolus angiogram of right Femoral complete: 4 ml/sec for a total of 7 mls jcallihan 01:55 PM Wire removed jcallihan 01:56 PM HR=57 bpm, XLMJ=351/56 mmhg, SpO2=97.0 %, Resp=17 B/min, Comment=sb 01:56 PM Procedure completed at 13:56 01/21/2018 [email or web address] 01:56 PM Did you address CASSIDY flow and Dominance? Yes [email or web address] 01:58 PM Sign out completed: Radiation Dose 138 mGy, 1705 cGy/cm2 Fluoro Time: 0.9 Isovue 370 - 200ml contrast 66.4 ml given by Lorene Sexton MD, [facility]. Complications: None. The patient was discharged out of the blood bank laboratory technologist in stable condition. Cardiac Rehab Consult needed: NoConfirmed administered medications: Yes jcallihan 01:58 PM Isovue 370 - 200ml,1 Bottle(s) used. [email or web address] 01:58 PM Arterial sheath pulled, Mynx closure device used and was Successful [id number] S/N. jcallihan 01:58 PM Estimated Blood Loss: minimal jcallihan 01:58 PM Post ECG NSR jcallihan 01:58 PM Post Blood Pressure 113/56 jcallihan 01:58 PM Information taught Cardiac Cath and Mynx jcallihan 01:59 PM Education needs Procedure, Plan of Care, and Responsibilities of Patient in Care jcallihan 01:59 PM Learning barriers :None jcallihan 01:59 PM Education Methods Verbal jcallihan 01:59 PM Education evaluation Able to repeat information [email or web address] 02:01 PM HR=56 bpm, MFHL=173/57 mmhg, SpO2=93.0 %, Resp=15 B/min 02:02 PM Site status No bleeding/hematoma - Rt Groin as reported by Ariadna Herrera RT (R) at 14:02 [email or web address] 02:02 PM Opsite applied jcallihan 02:02 PM Plavix, Effient or Brilinta given No jcallihan 02:02 PM Patient out of room: 14:02 jcallihan 02:02 PM family not present at this time. [email or web address] 02:02 PM Complications: None [email or web address] 02:03 PM Lesion found in Proximal RCA. Pre Stenosis: 20 Pre CASSIDY Flow: [email or web address] 02:03 PM Lesion found in Mid RCA. Pre Stenosis: 40 Pre CASSIDY Flow: [email or web address] 02:03 PM Lesion found in Proximal LAD. Pre Stenosis: 25 Pre CASSIDY Flow: [email or web address] 02:03 PM Lesion found in Mid LAD. Pre Stenosis: 30 Pre CASSIDY Flow: [email or web address] 02:03 PM Lesion found in Distal LAD. Pre Stenosis: 50 Pre CASSIDY Flow: [email or web address] 02:03 PM Proximal Left Anterior Descending Coronary Artery with 25% stenosis. If graft is supplying this territory, 0 % stenosis. [email or web address] 02:03 PM Mid/Distal Left Anterior Descending Coronary Artery and diagonal branches with 50% stenosis. If graft is supplying this area, 0 % stenosis jcallihan 02:04 PM Time: 13:48LOC: 4 = Oriented but drowsy jcallihan 02:04 PM Time: 13:49 Patient comfortable and pain free: Yes [email or web address] 02:04 PM Right Coronary, Right Posterior Descending Arteries with Right Posterolateral and Acute Marginal branches with 40 % stenosis. If graft is supplying this area, 0 % stenosis jcallihan 02:05 PM Report given to Sintia BOYCE Pt taken to 3B Room #35. 14:05 jcallihan 02:10 PM 14:10 Post Pulses Bilateral DP & PT 1+ [email or web address] Complications Complication None None Hemodynamics Pressures Site Systolic/A Wave Diastolic/V Wave Mean AO 76 43 58 LV 98 -6 2 LV 82 2 3 AO 74 36 54 AO 107 36 59 Post Procedure Information Blood Pressure: 113/56 mmHg Rhythm: NSR Post procedural instructions were given Closure Device Time Device Success/Fail 01/21/2018 2:00:00 PM MynxGrip Successful Site Checks Time Location Status Staff Sheath In? Note 02:02 PM Rt Groin No bleeding/hematoma Ariadna Herrera RT (R) Pulses Time Site Pre-Procedure Post-Procedure Note Bilateral DP & PT 1+ 1+ Bilateral radial 2+ 2+ 2:10:00 PM Bilateral DP & PT 1+ Updated by Silviano Campbell RN on 01/21/2018 2:19:30 PM electronically signed on 01/21/2018 2:20:15 PM with status of Final
[2018-01-21] MEDS: *HR* Rivaroxaban 10 MG TABLET PO SCH (16:30)
[2018-01-21 18:46] LABS: Hematocrit RBC Folate 34.1 %
[2018-01-22 04:38] LABS: Basophils % 0.3 %; Eosinophils # 0.1 K/mcL (0.0-0.6); Hematocrit 39.7 % (35.3-44.9); Hemoglobin 12.6 g/dL (11.5-15.4); Immature Granulocytes % 0.2 % (0-4); Lymphocytes # 2.1 K/mcL (0.6-4.6); Lymphocytes % 36.2 %; Mean Corpuscular HGB Conc 31.7 g/dL (31.6-35.5); Mean Corpuscular Hemoglobin 26.8 pg (28.0-33.3); Mean Corpuscular Volume 84.5 fL (83.0-100.0); Mean Platelet Volume 11.2 fL (9.4-12.4); Monocytes # 0.4 K/mcL (0.0-1.3); Monocytes % 6.1 %; Neutrophils # 3.3 K/mcL (1.6-8.9); Platelet Count 216 K/mcL (140-400); Red Cell Distribution Width 23.3 % (11.5-14.5); Segmented Neutrophils % 56.2 %
[2018-01-22 04:59] LABS: Alanine Aminotransferase 11 Units/L (7-52); Albumin 4.4 g/dL (3.5-5.7); Albumin/Globulin Ratio 1.6 (1.1-2.2); Alkaline Phosphatase 56 Units/L (34-104); Aspartate Amino Transferase 16 Units/L (13-39); BUN/Creatinine Ratio 23 (6-26); Bilirubin,Total 0.5 mg/dL (0.3-1.0); Blood Urea Nitrogen 16 mg/dL (8-23); Calcium 9.7 mg/dL (8.6-10.3); Carbon Dioxide 29 mEq/L (23-29); Chloride 101 mEq/L (98-107); Globulin 2.7 g/dL (2.4-3.5); Glucose 106 mg/dL (70-105); Osmolality,Calculated 292 (280-300); Potassium 3.6 mEq/L (3.5-5.1); Sodium 140 mEq/L (136-145); Total Protein 7.1 g/dL (6.4-8.9); eGFR For Non-African Americans > 60 (> 60)
[2018-01-22 06:06] LABS: Anisocytosis 3+ (Not Present); Macrocytosis Present (Not Present); Microcytosis Present (Not Present); Platelet Estimate Normal (Normal)
[2018-01-22] MEDS: Furosemide 20 MG TABLET PO SCH (08:15)
[2018-01-22] MEDS: Aspirin 81 MG TAB.CHEW PO SCH (08:15)
[2018-01-22] MEDS: Isosorbide MONOnitrate (24 HR) 30 MG TAB.ER.24H PO SCH (08:16)
[2018-01-22 11:39] VITALS: BP 112/63
--- NOTE | 2018-01-22 13:51 | Discharge Summary ---
- NOTES TO OUTPATIENT PROVIDER Notes to Outpatient Provider: ACS R/O, [facility] with stable disease, EF nl by LV gram. Continue medical management. No pending studies Orders not resulted at time of discharge: Pending orders 01/23/18 04:00 Complete Blood Count [HEME] AM 0400 Comprehensive Metabolic Panel AM 0400 Date of Encounter: 01/22/18 Time of Encounter: 13:51 - Discharge Diagnosis (1) Chest pain Priority: Primary Status: Acute Assessment and Plan: History of CAD including, CHF, A. fib High risk for cardiac event Troponin elevations with peak of 0.10, trending down TTE with changes compared to prior 2018 study;06/24/17 shows LVEF of 60-65%, normal LV chamber size and wall thickness and function, mild left ventricular diastolic dysfunction, normal right ventricular structure and function, no evidence of PFO with agitated saline contrast, mild mitral regurgitation, moderate pulmonary hypertension, estimated RVSP is 47 mmHg. 01/20/18- LVEF 45%. Normal LV chamber size. Mild segmental left ventricular systolic dysfunction. Since the prior echocardiogram, new segmental wall motion abnormalities have developed Cardiac catheter completed findings of stable CAD with normal EF by LV gram. Continue medical management and outpatient follow-up with cardiology. ACS ruled out Qualifiers: Chest pain type: other chest pain Qualified Code(s): R07.89 - Other chest pain; R07.8 - Other chest pain (2) GERD (gastroesophageal reflux disease) Priority: Secondary Status: Chronic Assessment and Plan: Hx of chronic GERD. Continue pts. PO Prilosec. IVP Zofran 4 mg Q6HR PRN for N/ V. Qualifiers: Esophagitis presence: esophagitis presence not specified Qualified Code(s) : K21.9 - Gastro-esophageal reflux disease without esophagitis (3) CAD (coronary artery disease) Priority: Secondary Status: Chronic Assessment and Plan: History of chronic CAD A. fib and CHF echo 06/24/17 shows LVEF of 6065% with normal LV chamber size and wall thickness function mild left ventricular diastolic dysfunction and normal right ventricular structure and function no evidence of PFO mild mitral regurgitation and moderate pulmonary hypertension Repeat 02/06 with decreased EF; concerns for ischemia Extension Work Instructor in consultation plan for [facility] this afternoon Has had recent Left heart catheter for non-STEMI 05/2017 revealed EF 35%- 40% mLAD stenosis hazy 60-70 percent stenosis rdistal LAD 40% stenosis mid RCA - Continue his cardiac telemetry Imdur added per cardiology Continue aspirin statin and beta grant Qualifiers: Coronary Disease-Associated Artery/Lesion type: [place] artery [place] vs. transplanted heart: [place] heart Associated angina: with unstable angina Qualified Code(s): I25.110 - Atherosclerotic heart disease of [place] coronary artery with unstable angina pectoris (4) Atrial fibrillation Priority: Secondary Status: Chronic Assessment and Plan: Continue telemetry, continue Xarelto. Qualifiers: Atrial fibrillation type: paroxysmal Qualified Code(s): I48.0 - Paroxysmal atrial fibrillation (5) Anemia Priority: Secondary Status: Chronic Assessment and Plan: Chronic, H&H stable, no signs or symptoms of bleeding. Continue to monitor Qualifiers: Anemia type: iron deficiency Iron deficiency anemia type: unspecified iron deficiency Qualified Code(s): D50.9 - Iron deficiency anemia, unspecified (6) Nausea Priority: Secondary Status: Resolved (7) HTN (hypertension) Priority: Secondary Status: Chronic Qualifiers: Hypertension type: essential hypertension Qualified Code(s): I10 - Essential (primary) hypertension (8) Previous myocardial infarction older than 8 weeks Priority: Secondary Status: Resolved (9) HLD (hyperlipidemia) Priority: Secondary Status: Chronic Qualifiers: Hyperlipidemia type: pure hypercholesterolemia Qualified Code(s): E78.00 - Pure hypercholesterolemia, unspecified; E78.0 - Pure hypercholesterolemia (10) CHF (congestive heart failure) Priority: Secondary Status: Chronic Qualifiers: Heart failure type: diastolic Heart failure chronicity: chronic Qualified Code(s): I50.32 - Chronic diastolic (congestive) heart failure (11) SOB (shortness of breath) Priority: Secondary Status: Acute (12) DVT prophylaxis Priority: Secondary Status: Acute Hospital course: Ms. Valdez is a 72 year old female who presented with chest pain. ACS ruled out. Hospital course is as follows. Found to be high risk for cardiac event, peak troponins of 0.10 and down trending. TTE with changes compared to prior study. Cardiac catheter showing findings of stable CAD with normal EF by LV gram. Continue current medical management and follow-up outpatient as necessary. Discharge discussed with: patient, family, nurse, erp consultant - Time Spent with Patient Total time spent providing and/or coordinating discharge services: Less than 30 minutes - Discharge Medications Prescriptions: Isosorbide MONOnitrate (24 HR) [Imdur] 30 mg PO DAILY 30 Days #30 tab.er.24h Home Medications: Aspirin 81 mg PO DAILY 06/04/17 [History] Atorvastatin [Lipitor] 40 mg PO 0900 06/04/17 [History] Carvedilol 12.5 mg PO BID 06/04/17 [History] Losartan/Hydrochlorothiazide [Losartan-Hctz 50-12.5 mg Tab] 1 each PO DAILY [History] Omeprazole [PriLOSEC] 40 mg PO BID 06/04/17 [History] Ubidecarenone/Vit E Acetate [Co Q-10 100 mg Softgel] 1 each PO DAILY 06/04/17 [ History] Furosemide [Lasix] 20 mg PO DAILY #30 tablet 06/08/17 [Rx] Rivaroxaban [Xarelto] 20 mg PO DAILY@1700 #30 tablet 06/08/17 [Rx] Potassium Chloride [Klor-Con 10] 20 meq PO DAILY 11/26/17 [History] Isosorbide MONOnitrate (24 HR) [Imdur] 30 mg PO DAILY 30 Days #30 tab.er.24h 07/07 [Rx] Allergies/Adverse Reactions: 3 Allergy/AdvReac Type Severity Reaction Status Date / Time Corticosteroids Allergy Nausea Verified 06/03/17 21:04 (Glucocorticoids) famotidine [From Pepcid] Allergy Nausea Verified 06/03/17 21:04 Date of admission: 01/19/18 11:54 Primary care physician: Lorene Barahona MD Consults: 01/19/18 13:00 Consult to Party Planner [CONS] Routine Reason for SW Consult: Please assess patient for possible home needs for post -discharge planning. 01/19/18 17:20 Consult to Cardiology [CONS] Routine Comment: Consulting Provider: Cardiology Lesa Reason for Consult: Patient being admitted w/CP that began yesterday w/ exertion. Hx of NV in May 2017 w/o stent placement. Pt. on Xarelto for Afib. Reports CP improved post-SL nitro. Initial troponin 0.03. Second troponin 0.08. Pt. took Xarelto at 17:00 today. Will need to hold 24 hours before we can start heparin per Pharmacy. Limited Echocardiogram ordered d/t pt. having Echo in June. Risk factors: Afib, CAD, HTN, HLD. Currently CP-free. Had ASA and nitro in ED. Call Completed: Yes 01/22/18 07:37 Consult to Cardiac Rehabilitation-Phase1 [CONS] Routine Comment: Reason for Consult: New CMP Call Completed: No Discharging clinician: Osmany Erazo Anticipated date of discharge: 01/22/18 - Constitutional Vitals: Temp Pulse Resp BP Pulse Ox 98.0 F 65 15 112/63 96 01/22/18 11:38 01/22/18 11:38 01/22/18 11:38 01/22/18 11:38 01/22/18 11:38 General appearance: Present: cooperative, A&O X 3, pleasant, no acute distress, answers questions appropriately Exam: . - Head Head exam: Present: atraumatic, normocephalic - Eye Eye exam: Present: PERRL, conjuntiva pink, sclera anicteric Pupils: Present: PERRL - Neck Neck exam general surgery: Present: supple, trachea midline. Absent: lymphadenopathy - Respiratory Respiratory exam: Present: CTAB. Absent: accessory muscle use, rales, rhonchi, wheezes - Cardiovascular Cardiovascular exam: Present: RRR, +S1, +S2. Absent: diastolic murmur, gallop, rubs, systolic murmur - GI/Abdominal GI/Abdominal exam: Present: normal bowel sounds, soft, no peritoneal signs. Absent: distended, tenderness - Extremities Exam Extremities exam: Present: warm, radial pulses palpable and symmetrical. Absent : calf tenderness, cyanotic, pedal edema - Neurological Exam Neurological exam: Present: CN II-XII intact, oriented X3, no focal deficits. Absent: pronater drift, facial droop, speech deficit - Skin Skin exam: Present: dry, intact - Patient Status Disposition: Home, Self-Care Condition: Fair Functional capacity at discharge: independent ambulation Overall status at discharge: patient is back to baseline - Discharge Instructions Instructions: Chest Pain (DC) Follow Up With: Lorene Barahona MD [Primary Care Provider] - 01/28/18 10:00 am () - Diet and Activity Activity: increase activity as tolerated, resume usual activities as tolerated Diet: diabetic diet, low fat, low cholesterol, low salt diet
--- NOTE | 2018-01-23 09:28 | Electrocardiograph Report ---
[address] [place] [address] Test Date: 2018-01-19 Pat Name: Shena Valdez Department: 113 Room: 3B Gender: F Medical Claims Specialist: : 1945 Requested By: [id number] Order Number: [id number] Reading MD: Rodrigo Diallo Measurements Intervals [place] Rate: 53 P: 62 [place]: 168 QRS: 6 QRSD: 130 T: 60 QT: 471 QTc: 453 Interpretive Statements SINUS BRADYCARDIA LEFT BUNDLE BRANCH BLOCK Anterior infarct possibly acute Electronically Signed On 01-23-2018 9:27:30 EDT by Rodrigo Diallo
== END 2018-01-22 14:45 | disposition home or self-care (01) ==
LOC: 3BNU 09:39 → EMEROOARM 09:39 → 3BNU 12:34
PROVIDERS: ADMIT Internal Medicine; ATTEND Internal Medicine